=== PATIENT | male | born 1945 | race Caucasian/White ===

== ENCOUNTER 2016-05-11 16:33 | Emergency (ER) | payer MEDICARE ==
--- NOTE | 2016-05-11 17:21 | ED ---
Upper Extremity Pain - HPI Summary HPI Summary: Lt hand dominant pt here w/ Rt thumb lac while working on table saw today. Has a lot of pain but denies numbness, weakness. Imms are UTD. Takes an 81mg ASA daily -otherwise, no anticoagulants. Recently had a fempop bypass for which he' s been taking keflex and colchicine for suspected gout - better since taking colchicine. Denies fever, chills, N/V/D. Has been eating and drinking well. 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 - History of Current Complaint Chief Complaint: EDLacSutureRecheck Stated Complaint: THUMB LAC FROM TABLE SAW Time Seen by Provider: 05/11/16 16:49 Hx Obtained From: Patient, Family/Termite Treater - - Allergies/Home Medications Allergies/Adverse Reactions: Allergies Allergy/AdvReac Type Severity Reaction Status Date / Time Atorvastatin [From Lipitor] Allergy Muscle Ache Verified 12/22/14 09:03 PMH/Surg Hx/FS Hx/Imm Hx Previously Healthy: No - recovering from fempop bypass w/ acute gout reaction Endocrine/Hematology History: Denies: Hx Anticoagulant Therapy Cardiovascular History: Reports: Hx Coronary Artery Disease - BLOCKED ARTERY; UNABLE TO DO ANGIOPLASTY 1979, Hx Hypertension, Hx Peripheral Vascular Disease - Fempop bypass 2016 Respiratory History: Denies: Hx Asthma Musculoskeletal History: Reports: Hx Arthritis - ALL OVER, Other Musculoskeletal History - SPINAL SURGERY Sensory History: Reports: Hx Cataracts - BILAT, Hx Contacts or Glasses - GLASSES Denies: Hx Hearing Aid Opthamlomology History: Reports: Hx Cataracts - BILAT, Hx Contacts or Glasses - GLASSES Psychiatric History: Denies: Hx Substance Abuse - Surgical History Surgery Procedure, Year, and Place: SINUS SURGERY 50 YRS AGO. R KNEE SURGERY 30 YRS AGO. LUMBAR SPINAL STENOSIS SURGERY 2009 [facility] [place]. R HAND CYST EXC 2010 [facility] [place]. CIRCUMCISION 1999 Hx Anesthesia Reactions: No - Immunization History Date of Tetanus Vaccine: per -"a year or two ago maybe" Infectious Disease History: No Infectious Disease History: Denies: Hx of Known/Suspected MRSA, Traveled Outside the [place] in Last 30 Days - Family History Known Family History: Positive: Unknown - Social History Lives: With Family - Alcohol Use: Weekly Alcohol Amount: 1 BEER 3-4/WEEK Hx Substance Use: No Substance Use Type: Reports: None Smoking Status (MU): Current Every Day Smoker Type: Cigarettes Amount Used/How Often: 1/2 PPD Length of Time of Smoking/Using Tobacco: 50 YRS Review of Systems Negative: Chest Pain Negative: Shortness Of Breath Gastrointestinal: Negative Musculoskeletal: Negative Skin: Other - see HPI Neurological: Negative Positive: Anxious All Other Systems Reviewed And Are Negative: Yes Physical Exam Triage Information Reviewed: Yes Vital Signs On Initial Exam: Initial Vitals Temp Pulse Resp BP Pulse Ox 97.0 F 62 20 164/110 95 05/11/16 16:34 05/11/16 16:34 05/11/16 16:34 05/11/16 16:34 05/11/16 16:34 Vital Signs Reviewed: Yes Appearance: Positive: Well-Appearing, Well-Nourished, Pain Distress Skin: Positive: Warm - jagged laceration over Rt palmar surface of thumb w/ oozing bleeding when pressure is not held in place Head/Face: Positive: Normal Head/Face Inspection Respiratory/Lung Sounds: Positive: Breath Sounds Present Cardiovascular: Positive: Pulses are Symmetrical in both Upper and Lower Extremities - radial pulse + 2, cap refill < 2 secs Musculoskeletal: Positive: Normal, Strength/ROM Intact Neurological: Positive: Normal, Sensory/Motor Intact, Alert, Oriented to Person Place, Time Psychiatric: Positive: Anxious - Kourtney Coma Scale Coma Scale Total: 15 Procedures - Laceration/Wound Repair 1 Location: upper extremity - Rt thumb Description: Irregular - jagged in places, skin avulsed in others Anesthesia: Digital - 3cc, .5%, Marcaine Length, Depth and Shape: 2.5cm x 4mm Betadine Prep?: Yes Irrigated w/ Saline (ccs): 500 Laceration/Wound Explored: clean Suture Type: Nylon - 5-0 Number of Sutures: 9 Layer Closure?: No Sterile Dressing Applied?: Yes - triple anbx + xerform + gauze pressure dressing Diagnostics - Vital Signs Vital Signs Temp Pulse Resp BP Pulse Ox 05/11/16 17:12 99.5 F 05/11/16 17:00 90 169/94 97 05/11/16 16:56 108 151/94 96 05/11/16 16:41 95 95 05/11/16 16:34 97.0 F 62 20 164/110 95 - Laboratory Lab Statement: Any lab studies that have been ordered have been reviewed, and results considered in the medical decision making process. Re-Evaluation - Re-Evaluation First Eval Change: Improved - digital block but pain was returning before d/c - ibuprofen and norco ordered Course/Dx - Diagnoses Provider Diagnoses: Laceration of thumb, right, complicated, Open fracture of distal phalanx of digit of right hand - Physician Notifications Discussed Care Of Patient With: 17:31 - spoke w/ Dr. Limon - wash and suture - call Saturday for appt early next week. Will continue keflex anbx. Called gabriela to notify wound was tacked more than completely closed d/t lack of skin integrity - will have pt perform soapy soak 1 x day w/ dressing change. Discharge - Discharge Plan Condition: Stable Disposition: HOME Prescriptions: Cephalexin CAP* [Keflex CAP*] 500 mg PO QID #20 cap HYDROcodone/ACETAMIN 5-325 MG* [Chassell 5-325 TAB*] 1 tab PO Q6H PRN #15 tab MDD 4 PRN Reason: Pain Patient Education Materials: Finger Laceration (ED), Finger Fracture (ED), Care For Your Stitches (ED) Referrals: Tonio Limon MD [Medical Doctor] - Additional Instructions: Keep dressing clean, dry and intact - you may soak in soapy water once a day - rinse well and pat dry before redressing with triple antibiotic and clean gauze. Redress with bulky dressing to protect and splint finger as tip is fractured. Follow-up with Dr. Schilling this week. Call Saturday to schedule an appointment. Your sutures will need to be removed in 10- 14 days or when decided by Dr. Limon Continue keflex to prevent infection and ibuprofen for pain. You may take norco for breakthrough pain as needed. *If you experience excessive bleeding despite pressure and/or fever, chills, streaking, purulent drainage, return to ED
--- NOTE | 2016-05-11 17:37 | RAD ---
INDICATION: Laceration with table saw. Right thumb injury. COMPARISON: None TECHNIQUE: AP, lateral, and oblique views were obtained. FINDINGS: There is a traumatic amputation of the distal phalanx comminution and with associated soft tissue injury. There is no radiopaque foreign body. IMPRESSION: TRAUMATIC AMPUTATION AT THE LEVEL OF THE DISTAL PHALANX. SOFT TISSUE INJURY.
[2016-05-11] MEDS ORDERED: Ibuprofen TAB* 600 MG PO ONE (18:18)
[2016-05-11] MEDS ORDERED: HYDROcodone/ACETAMIN 5-325 MG* 1 TAB PO ONE ×2 (18:18→18:52)
[2016-05-11 18:25] VITALS: BP 163/88
== END 2016-05-11 19:18 | disposition home or self-care (01) ==
LOC: ED 16:33
DX: S62.521B Displaced fracture of distal phalanx of right thumb, initial encounter for open fracture (principal); W31.2XXA Contact with powered woodworking and forming machines, initial encounter; Y92.9 Unspecified place or not applicable; Z79.82 Long term (current) use of aspirin; I25.10 Atherosclerotic heart disease of native coronary artery without angina pectoris; I10 Essential (primary) hypertension; F17.210 Nicotine dependence, cigarettes, uncomplicated; I73.9 Peripheral vascular disease, unspecified; M19.90 Unspecified osteoarthritis, unspecified site
CPT/HCPCS: 12001; 99283; A9270-GY

== ENCOUNTER → 2016-10-20 04:32 | Emergency (ER) | payer MEDICARE ==
[~2016-10-20 04:32] MED LIST: Albuterol/Ipratropium NEB.SOL* Albuterol 2.5 MG/Ipratropium 0.5 MG 3 ML INH ONE; Iohexol 300* (CONTRAST) 10 ML SDV IV ONE; Morphine INJ* 4 MG/ML 1 ML SYRINGE IV ONE; Morphine INJ* 4 MG/ML 1 ML SYRINGE ONE; NS 0.9% 1000 ML* 1,000 ML IV ONE; Ondansetron INJ* 2 MG/ML VIAL IV ONE
[2016-10-20 05:13] LABS: Hematocrit 43 % (42-52); Hemoglobin 14.4 g/dl (14.0-18.0); Mean Corpuscular HGB Conc 33 g/dl (31-36); Mean Corpuscular Hemoglobin 32 pg (27-31); Mean Corpuscular Volume 95 fL (80-94); Mean Platelet Volume 10 um3 (7.4-10.4); Red Blood Count 4.55 10^6/ul (4.0-5.4); Red Cell Distribution Width 14 % (10.5-15); White Blood Count 11.3 10^3/ul (3.5-10.8)
[2016-10-20 05:25] LABS: BUN/Creatinine Ratio 25.6 (8-20); Calcium 8.6 mg/dL (8.6-10.3); EGFR African American 106.4 (>60); EGFR Non-African American 82.7 (>60); Globulin 2.7 g/dL (2-4); Total Bilirubin 0.5 mg/dL (0.2-1.0); Total Protein 6.7 g/dL (6.4-8.9)
[2016-10-20 05:27] LABS: Troponin I 0.01 ng/mL (<0.04)
[2016-10-20 05:34] LABS: Potassium 4.1 mmol/L (3.5-5.0)
--- NOTE | 2016-10-20 08:05 | RAD ---
HISTORY: Shortness of breath COMPARISONS: December 28, 2013 VIEWS:1: Single frontal portable view of the chest at 4:18 AM FINDINGS: LINES AND TUBES: None. CARDIOMEDIASTINAL SILHOUETTE: The cardiomediastinal silhouette is normal for portable technique. PLEURA: The costophrenic angles are sharp. No pleural abnormalities are noted. LUNG PARENCHYMA: There is patchy alveolar opacification of the left lung base ABDOMEN: The upper abdomen is clear. There is no subphrenic gas. BONES AND SOFT TISSUES: There is subcutaneous emphysema along the left chest wall and neck IMPRESSION: EXTENSIVE SUBCUTANEOUS EMPHYSEMA OF THE LEFT CHEST WALL AND NECK. LEFT BASILAR ATELECTASIS VERSUS CONSOLIDATION.
--- NOTE | 2016-10-20 08:21 | RAD ---
HISTORY: Trauma to the chest and abdomen COMPARISONS: None relevant available at the time of dictation TECHNIQUE: Multiple contiguous axial CT scans were obtained of the chest, abdomen, and pelvis after the administration of intravenous contrast. Coronal and sagittal multiplanar reformations are submitted for review.. Oral contrast was not administered. Delayed images were obtained through the abdomen and pelvis. FINDINGS: CHEST NECK AND THYROID: The lower neck and thyroid are unremarkable. CHEST WALL: There is no lower cervical, axillary, or supraclavicular lymphadenopathy by size criteria. HEART AND PERICARDIUM: The heart is unremarkable. AORTA AND PULMONARY VASCULATURE: The aorta and pulmonary vasculature are normal. MEDIASTINUM: There is pneumomediastinum SANJEEV: There is no hilar lymphadenopathy by size criteria. AIRWAY AND ESOPHAGUS: The airway is unremarkable, without endobronchial filling defect. The esophagus is grossly normal. LUNG PARENCHYMA: There is subsegmental consolidation of the left lung base.. There is minimal groundglass opacification of the right upper lobe PLEURA: There is a small to moderate left pneumothorax. There is a small left high attenuation pleural effusion. BONES AND SOFT TISSUES: There are displaced fractures of the left eighth and ninth ribs. There is extensive subcutaneous emphysema. ABDOMEN/PELVIS: LIVER: The liver is normal in shape, size, contour, and attenuation. BILE DUCTS: There is no intrahepatic or extrahepatic biliary dilatation. GALLBLADDER: The gallbladder is normal, without pericholecystic inflammatory change. PANCREAS: The pancreas is normal, without mass or ductal dilatation. SPLEEN: Normal in size and appearance. UPPER GI TRACT: Evaluation of the gastrointestinal tract is limited by incomplete gastric distention. The upper GI tract is unremarkable. SMALL BOWEL \T\ MESENTERY: The small bowel is normal in contour, course, and caliber. There is no obstruction or dilatation. COLON: There are multiple diverticula of the distal colon. There is no pericolonic inflammatory change. ADRENALS: Normal bilaterally. KIDNEYS: The kidneys are normal in shape, size, contour, and axis. There is no hydronephrosis or nephrolithiasis. BLADDER: The bladder is smooth in contour. PELVIC ORGANS: The prostate gland is normal. The seminal vesicles are symmetric. AORTA: There is calcific atherosclerotic disease of the abdominal aorta and its branches, without aneurysmal dilatation IVC: Unremarkable LYMPH NODES: There is no lymphadenopathy by size criteria. ABDOMINAL WALL: There is no evidence for abdominal wall hernia. BONES: Degenerative changes are noted of the spine OTHER: There is no active arterial extravasation IMPRESSION: 1. SMALL TO MODERATE LEFT PNEUMOTHORAX WITH SMALL LEFT EFFUSION, LIKELY HEMORRHAGIC. 2. DISPLACED FRACTURES OF LEFT EIGHTH AND NINTH RIBS. 3. EXTENSIVE SUBCUTANEOUS EMPHYSEMA. 4. NO PLACENTA PREVIA 5. THERE IS BASILAR CONSOLIDATION. THERE IS GROUND LESS OPACIFICATION OF THE RIGHT UPPER LUNG. THE DIFFERENTIAL INCLUDES PULMONARY CONTUSION. 6. DIVERTICULOSIS. 7. NO ACUTE PATHOLOGY OF THE ABDOMEN. NO ACTIVE ARTERIAL EXTRAVASATION.
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
[2016-10-20 09:41] VITALS: BP 143/75
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
== END | disposition short-term general hospital (02) ==
LOC: ED 04:32
DX: T79.7XXA Traumatic subcutaneous emphysema, initial encounter (principal); S29.9XXA Unspecified injury of thorax, initial encounter; J93.9 Pneumothorax, unspecified; J94.2 Hemothorax; R07.9 Chest pain, unspecified; W30.89XA Contact with other specified agricultural machinery, initial encounter
CPT/HCPCS: 36415; 71010; 71260; 74177; 80053; 83605; 83690; 83880; 84484; 85025; 85610; 85730; 86850; 86900; 86901; 93005; 94640; 96374; 96375; 99285; A9270-GY; J2270; J2405; Q9967

== ENCOUNTER 2017-02-12 06:35 | Inpatient (IN) | payer MEDICARE ==
--- NOTE | 2017-02-06 12:44 | HP ---
PREOPERATIVE HISTORY AND PHYSICAL: DATE OF ADMISSION: 02/12/17 PROVIDER: Amber Britton MD * (DICTATED BY MIRANDA PITTS) CHIEF COMPLAINT: Bilateral knee pain. HISTORY OF PRESENT ILLNESS: Mr. Pichardo is a 71-year-old gentleman who has had ongoing pain in bilateral knees. He rates this as anywhere from 2 to 8 out of 10, aching pain along his medial joint line. It is increased with weightbearing and prolonged ambulation. He has failed conservative treatment and is elected to proceed with a left total knee arthroplasty. PAST MEDICAL HISTORY: GERD, osteoarthritis, spinal stenosis, anxiety, coronary artery disease with angina, peripheral vascular disease, tobacco use, and gout. PAST SURGICAL HISTORY: Right hand cyst excision in 2010, sinus surgery in 194 , arthroscopy of the right knee, circumcision in 1999, right ankle fracture fixation, cardiac catheterization in 1979, lower back surgery in 2009. He reports nausea with anesthesia. CURRENT MEDICATIONS: 1. Magnesium supplement half tab p.o. once daily. 2. Wellbutrin SR 100 mg b.i.d. 3. Glucosamine chondroitin 1500 complex 1 p.o. b.i.d. 4. Cinnamon 500 mg 1 p.o. b.i.d. 5. Potassium chloride 10 mEq half tab p.o. daily. 6. Aspirin 81 mg daily. 7. Amlodipine 5 mg daily. 8. Colchicine as needed. ALLERGIES: LIPITOR, ALLOPURINOL, TRANDOLAPRIL. SOCIAL HISTORY: He lives with his . 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 He currently smokes a half a pack of cigarettes per day and has for 50 years. He rarely consumes alcohol. He exercises regularly. REVIEW OF SYSTEMS: Constitutional: Negative for recent hospitalizations, fevers, chills, night sweats or unexplained weight loss. Head: Negative for headaches, lightheadedness, or balance problems. Cardiovascular: Positive for chest pain with exertion due to his angina. History of heart attack, heart palpitations. Positive for high blood pressure. Negative for embolism or deep vein thrombosis. Respiratory: Negative for chronic cough. Negative for shortness of breath with exertion, asthma or COPD. Gastrointestinal: Negative for heartburn, nausea, vomiting, diarrhea, constipation or GERD. Genitourinary : Negative for nighttime urination, frequency of urination, urinary tract infections or kidney problems. Musculoskeletal: Negative for chronic back pain or recent fractures. Skin: Negative for rashes, lesions, lumps or sores. Neurologic: Negative for seizure, stroke, epilepsy, depression or anxiety. Endocrine: Negative for diabetes or thyroid problems. Hematology: Negative for easy bleeding, bruising or anemia. PHYSICAL EXAMINATION GENERAL: He is a well-developed, well-nourished pleasant male, in no acute distress at rest. He is alert and oriented x2 with appropriate mood and affect. VITAL SIGNS: The patient is 5 feet 8 inches, 186 pounds, blood pressure 166/86 , pulse of 64. HEENT: Normocephalic, atraumatic. Hearing and vision are grossly intact. NECK: His trachea is midline. RESPIRATORY: Lungs clear to auscultation bilaterally. No wheezes, rales or rhonchi. CARDIOVASCULAR: Regular rate and rhythm. No murmurs, rubs or gallops. Normal S1, S2. ABDOMEN: Soft, nondistended, nontender. Normal bowel sounds. EXTREMITIES: Exam of the left lower extremity, skin is intact without abrasions or open wounds. There is a mild joint effusion. There is no ecchymosis or gross deformity. He has no varus or valgus instability. He has 15 to 90 degrees of flexion. He has 5/5 ankle dorsiflexion and plantar flexion strength. His sensation to light touch is intact to all nerve distributions. He has 2+ dorsalis pedis pulse. IMPRESSION: Left knee osteoarthritis. PLAN: The patient is to undergo left total knee arthroplasty by Dr. Britton on . The risks, benefits and post-operative course were discussed with the patient at length and he would like to proceed. All of his questions and his 's questions were answered to their full satisfaction. The patient is not interested in visiting nurse service and would prefer not to be on Coumadin. This was discussed at his preoperative appointment, and aspirin will be used for DVT prophylaxis. A prescription for Percocet was also sent to his pharmacy for postoperative pain. MIRANDA PITTS [id number]/[facility] #: [id number] JARRELL
[~2017-02-12 06:35] MED LIST changes: +Acetaminophen TAB* 325 MG PO ONE; -Albuterol/Ipratropium NEB.SOL* Albuterol 2.5 MG/Ipratropium 0.5 MG 3 ML INH ONE; +Buffered Lidocaine 0.9% SYRIN* 5 ML/SYR SYRINGE INTRADERM ONE; +Dexamethasone IV* 4 MG/ML 1 ML (4 MG) IV SLOW PU ONE; -Iohexol 300* (CONTRAST) 10 ML SDV IV ONE; -Morphine INJ* 4 MG/ML 1 ML SYRINGE IV ONE; -Morphine INJ* 4 MG/ML 1 ML SYRINGE ONE; -NS 0.9% 1000 ML* 1,000 ML IV ONE; -Ondansetron INJ* 2 MG/ML VIAL IV ONE; +Sodium Citrate/Citric Acid* 15 ML UDC PO ONE
[2017-02-12] MEDS ORDERED: ceFAZolin 2 GM PREMIX (*) 2 GM/50 ML BAG IVPB ONE (07:10)
[2017-02-12] MEDS ORDERED: Sodium Citrate/Citric Acid* 15 ML UDC ONE (07:10)
[2017-02-12] MEDS ORDERED: Acetaminophen TAB* 325 MG ONE (07:10)
[2017-02-12] MEDS ORDERED: Dexamethasone IV* 4 MG/ML 1 ML (4 MG) ONE (07:10)
[2017-02-12] MEDS ORDERED: Buffered Lidocaine 0.9% SYRIN* 5 ML/SYR SYRINGE ONE (07:10)
[2017-02-12] MEDS ORDERED: Midazolam* 1 MG/ML 2 ML VIAL (2 MG) ONE ×3 (07:32→09:08)
[2017-02-12] MEDS ORDERED: fentaNYL* 50 MCG/ML 2 ML VIAL (100 MCG VIAL) ONE (07:33)
[2017-02-12] MEDS ORDERED: Lidocaine 2% PF * 5 ML VIAL ONE (07:33)
[2017-02-12] MEDS ORDERED: Propofol* 500 MG/50 ML BTL ONE (07:33)
[2017-02-12] MEDS ORDERED: Bupivacaine 0.5% SDV PF* 30 ML VIAL ONE (07:33)
[2017-02-12] MEDS ORDERED: oxyCODONE/Acetamin 5/325 MG* TAB PO PRN ×2 (08:33→10:57)
[2017-02-12] MEDS ORDERED: fentaNYL* 50 MCG/ML 2 ML VIAL (100 MCG VIAL) IV PRN (08:33)
[2017-02-12] MEDS ORDERED: Ondansetron INJ* 2 MG/ML VIAL IV PRN ×2 (08:33→10:57)
[2017-02-12] MEDS ORDERED: Levalbuterol 0.63MG/3ML NEB* UNIT OF USE INH PRN (08:33)
[2017-02-12] MEDS ORDERED: DiMENhydriNATE IV* 50 MG/ML VIAL IV PUSH PRN (08:33)
[2017-02-12] MEDS ORDERED: HYDROcodone/ACETAMIN 5-325 MG* 1 TAB PO PRN (08:33)
[2017-02-12] MEDS ORDERED: oxyCODONE TAB* 5 MG TAB PO PRN (08:33)
[2017-02-12] MEDS ORDERED: HYDROmorphone INJ* 1 MG/ML CARPUJECT SYRINGE IV PRN (08:33)
[2017-02-12] MEDS ORDERED: EPHEDrine (Pressors)* 50 MG/ML VIAL ONE (08:42)
[2017-02-12] MEDS ORDERED: Propofol* 10 MG/ML 20 ML BTL IV PUSH ONE (09:06)
[2017-02-12] MEDS ORDERED: Ondansetron INJ* 2 MG/ML VIAL ONE (10:03)
[2017-02-12] MEDS ORDERED: Ketorolac INJ* 30 MG/ML 1 ML VIAL ONE (10:03)
[2017-02-12] MEDS ORDERED: Bisacodyl SUPP* 10 MG SUPP PR PRN (10:57)
[2017-02-12] MEDS ORDERED: Ondansetron TAB* 4 MG PO PRN (10:57)
[2017-02-12] MEDS ORDERED: Magnesium Hydroxide LIQ* 30 ML UDC PO PRN (10:57)
[2017-02-12] MEDS ORDERED: diPHENhydraMINE IV* 50 MG/ML 1 ml VIAL (BENADRYL) IV PRN (10:57)
[2017-02-12] MEDS ORDERED: Morphine INJ* 2 MG/ML 1 ML SYRINGE (TWO MG - NEW SYRINGE VERSION) IV PRN (10:57)
[2017-02-12] MEDS ORDERED: Polyethylene Glycol 3350* 17 GM PACKET PO PRN (10:57)
[2017-02-12] MEDS ORDERED: Acetaminophen TAB* 325 MG PO PRN (10:57)
[2017-02-12] MEDS ORDERED: ceFAZolin 1 GM in Dextrose (*) 1 GM/50 ML Duplex BAG IVPB SCH (11:00)
[2017-02-12] MEDS ORDERED: Cyclobenzaprine TAB* 10 MG PO PRN (11:02)
[2017-02-12] MEDS ORDERED: oxyCODONE/Acetamin 5/325 MG* TAB ONE (11:28)
--- NOTE | 2017-02-12 11:37 | RAD ---
HISTORY: Status post left knee arthroplasty COMPARISONS: December 24, 2016 VIEWS: 2, Frontal and lateral views of the left knee FINDINGS: BONE DENSITY: Normal. BONES: The patient is status post left knee arthroplasty. There is no hardware failure or osteolysis. JOINTS: The patient is status post left knee arthroplasty ALIGNMENT: There is no dislocation. SOFT TISSUES: There is postsurgical change to the soft tissue. A vascular stent is noted along the distal femur. OTHER FINDINGS: None. IMPRESSION: STATUS POST LEFT KNEE ARTHROPLASTY
[2017-02-12] MEDS: oxyCODONE TAB* 5 MG TAB PO PRN ×2 (14:09→20:58)
[2017-02-12] MEDS: ceFAZolin 1 GM VIAL(*) 1 GM in D5W 50 ML BAG* 50 ML IVPB SCH ×2 (16:00→23:38)
[2017-02-12] MEDS: Nicotine PATCH 21 MG/24 HR* PATCH TRANSDERM SCH (16:53)
[2017-02-12] MEDS ORDERED: Warfarin TAB(*) 6 MG PO SCH (17:00)
[2017-02-12] MEDS: oxyCODONE/Acetamin 5/325 MG* TAB PO PRN ×2 (18:34→22:30)
--- NOTE | 2017-02-12 20:41 | CONS ---
HOSPITAL MEDICINE CONSULTATION REPORT: DATE OF CONSULT: 02/12/17 PROVIDER: Alyssa Wilder NP ATTENDING PHYSICIAN: Dr. Britton. CONSULTING PHYSICIAN: Benjamin Burks MD (dictation provided by Alyssa Wilder NP). REASON FOR CONSULT: Co-medical management of the patient's chronic medical conditions. HISTORY OF PRESENT ILLNESS: Mr. Pichardo is a 71-year-old male that presents with a past medical history of GERD, osteoarthritis, spinal stenosis, anxiety, coronary artery disease with angina, peripheral vascular disease with bypass and stenting to his legs, gout, and hypertension. He presented to the hospital today for a planned left total knee arthroplasty with Dr. Britton. In brief, the patient had bilateral knee aching pain for a long time along the medial joint line, increasing with weight-bearing and prolonged ambulation. He failed conservative treatment and was admitted today for an scheduled elective left total knee replacement. During the postoperative period, he is doing well. We were called for consult due to his history of coronary artery disease, peripheral vascular disease, and hypertension. The patient states that he is doing well. He has no pain currently. PAST MEDICAL HISTORY: 1. GERD. 2. Osteoarthritis. 3. Spinal stenosis. 4. Anxiety. 5. Coronary artery disease with angina. 6. Peripheral vascular disease. 7. Gout. 8. Hypertension. PAST SURGICAL HISTORY: 1. Right hand cyst incision in 2010. 2. Sinus surgery in 194. 3. Arthroscopy of the right knee. 4. Circumcision in 1999. 5. Right ankle fracture. 6. Cardiac catheterization 1979. 7. Low back surgery in 2009. 8. Bypass in the right leg. 9. Stenting to the left leg in 2015. HOME MEDICATIONS: 1. Magnesium half tablet p.o. daily. 2. Wellbutrin 100 mg b.i.d. 3. Glucosamine 1500 mg p.o. b.i.d. 4. Cinnamon 500 mg b.i.d. 5. Potassium 10 mEq half p.o. daily. 6. Aspirin 81 mg daily. 7. Amlodipine 5 mg daily. 8. Colchicine 0.6 mg b.i.d. ALLERGIES: LIPITOR, ALLOPURINOL, PLETAL, AND TRANDOLAPRIL. FAMILY HISTORY: Father had coronary artery disease. SOCIAL HISTORY: The patient is a current smoker, smokes half a pack to a pack per day. He does drink alcohol occasionally. Denies recreational drug use. He lives at home with his , Carmen Pichardo. Surrogate decision maker in the event he cannot make his decisions for himself is his , Carmen Pichardo, phone number . REVIEW OF SYSTEMS: Constitutional: No fever, no chills. No unintended weight loss. Cardiac: Denies chest pain or edema. Respiratory: Denies shortness of breath, cough, or congestion. GI: Denies nausea, vomiting or diarrhea. Denies abdominal pain. : No gross hematuria or dysuria. Neuro: No focal weakness or sensory loss. Eyes: No visual complaints. ENT: No dysphagia, rhinorrhea. Musculoskeletal: Complains of bilateral knee pain that is chronic. Skin: No rashes or lesions. Psych: No depression or anxiety. PHYSICAL EXAM: Vital Signs: Blood pressure 124/68, heart rate is sinus rhythm in the 70s, respirations are 20, temperature is 98.1, O2 sat is 96% on 2 L. General: Mr. Pichardo is sitting in the bed. He is in no acute distress. Neuro: He is alert and oriented x3. He is able to move all extremities equally. Extraocular eye movements are intact. Heart: S1, S2. No murmurs, rubs, gallops. He is in regular rate and rhythm. Lungs: Clear to auscultation bilaterally with no accessory muscle use. Abdomen: Soft, nontender. Bowel sounds positive x4. Extremities: No cyanosis or edema. Skin: Intact. He does have a dressing intact to his left knee. DIAGNOSTIC STUDIES/LAB DATA: Preoperatively, his lab work is from 01/30/17. WBCs are 7.5, RBC 4.88, hemoglobin is 15.8, hematocrit 47, platelet count was 204. INR was 0.90 on 01/30/17. Also from 01/30/17, sodium was 139, potassium 3.9, chloride 105, carbon dioxide 28, BUN 14, creatinine was 0.85, glucose was 82, calcium was 9.0. AST is 23, ALT is 19. Urine from 01/30/17, specific gravity 1.019, pH was 5, negative for blood, nitrites, ketones, protein, and bilirubin. Left knee x-ray from 02/12/17, radiologist reading status post left knee arthroplasty is impression. Echo from 02/06/17 showed mild mitral regurg, mild tricuspid regurgitation, and an EF of 55% to 60%, EKG from 01/29/17, sinus rhythm 84, first- degree AV block. IMPRESSION AND PLAN: Mr. Pichardo is 71-year-old male that was with past medical history significant for coronary artery disease, hypertension, gout, peripheral vascular disease, anxiety and osteoarthritis was admitted for an elective left total knee arthroscopy in the immediate postoperative period. He is doing well. He has no complaints at this time. Our recommendations are as follows: 1. Status post left total knee arthroscopy, management per Orthopedics. The patient will be given pain management. His H and H will be trended. He will have the urinary catheter removed tomorrow morning. The patient will have physical therapy/occupational therapy with weightbearing as tolerated. 2. Hypertension: We will continue him on his amlodipine 5 mg p.o. daily and monitor his blood pressure throughout his stay. 3. Gout: We will continue him on his colchicine 0.6 mg b.i.d. 4. Anxiety: We will continue on Wellbutrin 100 mg p.o. b.i.d. 5. Fluid, electrolytes, and nutrition: The patient will be placed on a regular diet. 6. DVT prophylaxis: The patient will be on warfarin per Orthopedics and will also receive Lovenox. 7. Code status is full code. 8. Disposition: Disposition is per Orthopedic Surgery. TIME SPENT: Time spent on this consultation was 60 minutes, 30 minutes were spent with the patient discussing medications and past medical history leading to the events of his arrival today. The case was reviewed with my attending Dr. Benjamin Burks, who agrees with my plan of care. ALYSSA WILDER, SIDE SHOW ENTERTAINER [id number]/[facility] #: [id number] JARRELL
[2017-02-12] MEDS: Colchicine* 0.6 MG TAB PO SCH (20:55)
[2017-02-12] MEDS: buPROPion SR TAB.SR* 150 MG PO SCH (20:55)
[2017-02-12] MEDS: Docusate CAP* 100 MG PO SCH (20:55)
[2017-02-12] MEDS ORDERED: Nicotine Patch Removal NOTE FOLLOW UP SCH (21:00)
[2017-02-13] MEDS: oxyCODONE/Acetamin 5/325 MG* TAB PO PRN ×3 (03:48→12:23)
--- NOTE | 2017-02-13 04:04 | OP ---
DATE OF OPERATION: 02/12/17 - ROOM #347 DATE OF : 41 ATTENDING SURGEON: Amber Britton MD. CONSUMER LENDER: MIRANDA Scott. Ms. Vega did help throughout the procedure with preparation of the leg, wound retraction, manipulation of the knee, and wound closure. ANESTHESIOLOGIST: Dr. Iverson ANESTHESIA: Spinal. PRE-OP DIAGNOSIS: Severe endstage degenerative osteoarthritis of the left knee joint with varus deformity. POST-OP DIAGNOSIS: Severe endstage degenerative osteoarthritis of the left knee joint with varus deformity. OPERATIVE PROCEDURE: Left total knee arthroplasty. TOURNIQUET TIME: 58 minutes. COMPLICATIONS: None. ESTIMATED BLOOD LOSS: 250 cc. HARDWARE USED: A cemented [employer] total knee arthroplasty hardware. Two packages of Simplex bone cement. For the femur, a left size 7 posterior stabilized Legion femoral component. For the tibia size 6 left tibial baseplate Nini II. For the insert, an 11 mm posterior stabilized articular insert, size 5-6, and for the patella a 35-mm 3-peg all poly patella. BRIEF HISTORY/INDICATIONS: Mr. Pichardo is a 71-year-old gentleman with years of increasingly severe left knee pain. Radiographs showed [id number] arthritis. He developed varus deformity. He failed conservative treatment with anti- inflammatories, pain medication, and intraarticular injections and physical therapy. Due to continued pain and decreased quality of life, he elected to undergo left total knee arthroplasty. Informed consent was obtained from the patient. He understood the risks of surgery, included but were not limited to bleeding, infection, damage to nearby structures, continued pain, need for further surgery, intraoperative fracture, nerve palsy, hardware failure or loosening, knee stiffness, loss of motion, stroke, heart attack, blood clot, and . He wished to proceed. INTRAOPERATIVE FINDINGS: Intraoperatively, the patient was noted to have severe flexion contracture of 20 degrees. He had 12 degree valgus deformity. He had tricompartmental extensive osteophyte formation and complete loss of cartilage. DESCRIPTION OF PROCEDURE: Mr. Pichardo was identified in the preanesthesia unit. His left lower extremity was marked as the correct operative side. Informed consent was signed and placed in the chart. The patient was taken to the operating room and placed under anesthesia. A Narvaez catheter was placed. Thigh head tourniquet was placed on the left thigh. Left lower extremity was prepped and draped in the usual sterile fashion. Preop time-out was made to correctly identify the patient's side and site. Appropriate perioperative antibiotics were given within 1 hour of incision. Tourniquet was inflated and total tourniquet time for this procedure was 58 minutes. A 14-cm midline incision was made with a 10-blade carried down to the extensor mechanism. New 10-blade was used to make a standard medial parapatellar arthrotomy. Patella was subluxed laterally. Electrocautery was used to subperiosteally elevate soft tissue off the supero-medial tibia to the mid sagittal plain. Rongeur was used to remove the osteophytes along the proximal medial tibial plateau. The knee was flexed up. The anterior horn of the lateral meniscus and ACL were sharply released. A drill was used to enter the distal femur. Intramedullary distal femoral cutting guide was pinned on the distal femur. 9 mm of distal femoral bone was carefully removed using an oscillating saw. External rotation guide was pinned on the distal femur and the distal femur was sized to a size 7. Multi-cutting jig size 7 was pinned on the distal femur. The oscillating saw was used to make the appropriate four chamfer cuts. The PCL was completely released using electrocautery. Tibia was subluxed anteriorly. Extramedullary tibial cutting guide was pinned on the proximal tibia. The oscillating saw was used to make a proximal tibial cut perpendicular to the mechanical axis of the tibia. The bone was carefully removed. The knee was brought out into full extension and then spacer block had good fit. Medial and lateral ligaments were well balanced. Flexion and extension gaps were well balanced. The knee was flexed up. Lamina psychiatry instructor was placed both medially and laterally. Any remaining meniscus was carefully removed using electrocautery. Posterior osteophytes were removed using the curved osteotome. Tibial tray and drop marija were placed to once again confirm satisfactory tibial cut. This was confirmed. A trial left size 7 femoral component was impacted on to the distal femur and had excellent fit. The box for the posterior stabilized implant was prepared using a reamer and box cut osteotome. Size 6 tibial tray trial with an 11-mm insert trial was placed and the knee taken through a range of motion. The knee had full extension to 130 degrees of flexion with good patellofemoral tracking. The patella was everted. A 9 mm of patellar bone and cartilage was carefully removed using an oscillating saw. The patella was sized to a size 35. The three peg holes were drilled through the size 35 guide. A 35 trial patella was placed and the knee was taken through range of motion. There was satisfactory patellofemoral tracking. All trials were carefully removed. The tibia was subluxed anteriorly and sized to a size 6. Proximal tibia was prepared using a size 6 keel punch. All bony cut surfaces were copiously irrigated with sterile saline and dried. The final implants were cemented into place starting with the tibia, followed by the femur and last patella. An 11 mm insert trial was placed while the knee was brought out to full extension. The cement was allowed to fully cure. Tourniquet was turned down at 58 minutes. The knee was copiously irrigated with sterile saline. Electrocautery was used to obtain meticulous hemostasis. Once the cement had fully cured, the insert trial was removed. Excess cement was carefully removed from around the capsule and hardware. Final insert chosen was an 11 mm posterior stabilized articular insert size 5/6. This was locked into position on the tibial tray. Stability of the insert was checked and rechecked and noted to be stable. The extensor mechanism was closed using interrupted #1 Vicryls. The rest of the incision was closed in a layered fashion using 0-2 Vicryls. The skin was closed using running 3-0 nylon suture. Sterile Xeroform, 4x4s, and Webril were used to cover the incision. Carl wrap and cold pack were placed over this. The patient's anesthesia was reversed without difficulty. He was taken to the PACU in stable condition. Intended weight-bearing will be weightbearing as tolerated. Intended DVT prophylaxis will be Coumadin with a Lovenox bridge. [id number]/[facility] #: [id number] JARRELL
[2017-02-13 05:46] LABS: Hematocrit 38 % (42-52); Hemoglobin 12.6 g/dl (14.0-18.0)
[2017-02-13 06:14] LABS: BUN/Creatinine Ratio 14.9 (8-20); Calcium 8.2 mg/dL (8.6-10.3); EGFR African American 110.6 (>60); Potassium 3.5 mmol/L (3.5-5.0)
[2017-02-13] MEDS: Nicotine PATCH 21 MG/24 HR* PATCH TRANSDERM SCH (07:58)
--- NOTE | 2017-02-13 08:38 | PN ---
Progress Note - Progress Note Date of Service: 02/13/17 SOAP: Subjective: [] Patient seen at bedside. He is feeling well with well controlled pain. No chest pain, shortness of breath, dizziness, leg numbness, fever or chills. He is voiding on his own and is ready for discharge per physical therapy. Objective: [] Vital Signs Temp 98.0 F 02/13/17 07:45 Pulse 66 02/13/17 07:45 Resp 18 02/13/17 07:58 BP 115/51 02/13/17 07:45 Pulse Ox 95 02/13/17 08:00 Intake & Output 02/12/17 02/13/17 02/13/17 18:59 06:59 18:59 Intake Total 2903 970 Output Total 850 950 Balance 2052 20 Weight 186 lb Intake: IV Fluids 3 LR 1853 NS 50ML, Cefazolin 2G 50 Oral 1000 970 Output: Narvaez 850 950 Laboratory Last Values Hgb 12.6 g/dl (14.0-18.0) L 02/13/17 05:23 Hct 38 % (42-52) L 02/13/17 05:23 INR (Anticoag Therapy) 0.90 (0.77-1.02) 02/13/17 05:22 Sodium 135 mmol/L (133-145) 02/13/17 05:22 Potassium 3.5 mmol/L (3.5-5.0) 02/13/17 05:22 Chloride 104 mmol/L (101-111) 02/13/17 05:22 Carbon Dioxide 27 mmol/L (22-32) 02/13/17 05:22 Anion Gap 4 mmol/L (2-11) 02/13/17 05:22 BUN 13 mg/dL (6-24) 02/13/17 05:22 Creatinine 0.87 mg/dL (0.67-1.17) 02/13/17 05:22 Est GFR ( Amer) 110.6 (>60) 02/13/17 05:22 Est GFR (Non-Af Amer) 86.0 (>60) 02/13/17 05:22 BUN/Creatinine Ratio 14.9 (8-20) 02/13/17 05:22 Glucose 124 mg/dL (70-100) H 02/13/17 05:22 Calcium 8.2 mg/dL (8.6-10.3) L 02/13/17 05:22 General: Well appearing, no acute distress LLE: Drain pulled by Dr. Britton this morning without complication Assessment: []POD 1 s/p left total knee arthroplasty 02/12, Dr. Britton Plan: []WBAT PT/OT Lovenox and coumadin in house, ASA 325 mg BID at discharge DC home today.
[2017-02-13] MEDS ORDERED: amLODIPine TAB* 5 MG PO SCH (09:00)
[2017-02-13] MEDS: Colchicine* 0.6 MG TAB PO SCH (09:09)
[2017-02-13] MEDS: Docusate CAP* 100 MG PO SCH (09:09)
[2017-02-13] MEDS: buPROPion SR TAB.SR* 150 MG PO SCH (09:09)
[2017-02-13] MEDS: ceFAZolin 1 GM VIAL(*) 1 GM in D5W 50 ML BAG* 50 ML IVPB SCH (09:10)
[2017-02-13] MEDS ORDERED: Enoxaparin(*) 40 MG/0.4 ML SYR SUBCUT SCH (12:00)
[2017-02-13] MEDS: oxyCODONE TAB* 5 MG TAB PO PRN (15:36)
[2017-02-13 15:56] VITALS: BP 122/60
[2017-02-13] MEDS ORDERED: Warfarin TAB(*) 4 MG PO ONE (17:00)
--- NOTE | 2017-02-14 06:31 | DS ---
DISCHARGE SUMMARY: DATE OF ADMISSION: 02/12/17 DATE OF DISCHARGE: 02/13/17 DATE OF OPERATION: 02/12/17 DATE OF SERVICE: 02/13/17 ATTENDING SURGEON: Dr. Amber Britton. * (DICTATED BY MIRANDA PADGETT) CONCRETING SUPERVISOR: MIRANDA Scott. PRE-OP DIAGNOSIS: Severe end-stage degenerative osteoarthritis of the left knee joint with varus deformity. OPERATIVE PROCEDURE: Left total knee arthroplasty. HISTORY: Mr. Pichardo is a 71-year-old male with years of increasingly severe left knee pain. Radiographs show [id number] arthritis. He developed varus deformity. He failed conservative treatment with anti-inflammatories, pain medications, intraarticular injections, and physical therapy. Due to increased pain and decreased quality of life, he elected to undergo left total knee arthroplasty. HOSPITAL COURSE: The patient was admitted to [facility] on 02/12/17 when he underwent a left total knee arthroplasty by Dr. Amber Britton, which was uncomplicated. After surgery, he was brought to the PACU and then to the short - stay surgical unit in stable condition. On postop day #1, his Narvaez was removed and he was able to urinate on his own. He participated and achieved his goals with physical therapy. Hemoglobin and hematocrit 12.6/38. Vital signs: Temperature 97.9, pulse 67, respiratory rate 18, oxygen saturation 96, blood pressure 122/60. On exam, he was well appearing and in no acute distress. His drain was pulled by Dr. Britton this morning without complications. Bilateral lower extremities: Calves were supple and nontender without erythema , edema, or palpable cords. Negative Homans sign. Dorsiflexion and plantarflexion intact. Dorsalis pedis and posterior tibial pulses 2+. Sensation intact distally. Dressing was changed prior to patient leaving today. He was deemed medically and orthopedically stable for discharge home and patient desired discharge home. CONSULTS DURING HIS STAY: Occupational Therapy and Physical Therapy as well as hospitalist team. DISCHARGE MEDICATIONS: 1. Wellbutrin 150 mg p.o. b.i.d. 2. Colchicine 0.6 mg p.o. b.i.d. 3. Potassium 50 mg p.o. q.a.m. 4. Glucosamine chondroitin 1 tab p.o. b.i.d. 5. Cinnamon 500 mg p.o. b.i.d. 6. Magnesium 125 mg p.o. q.a.m. 7. Amlodipine 5 mg q.a.m. 8. Acetaminophen 650 mg p.o. q. 4 hours p.r.n., not to exceed 4000 mg per day from all sources. 9. Aspirin 325 mg p.o. b.i.d. for 30 days. 10. Colace 100 mg p.o. t.i.d. 11. Percocet 5/325 mg 1 to 2 tabs p.o. q. 4 to 6 hours p.r.n. for pain, MDD of 12. DISCHARGE INSTRUCTIONS: Weightbearing as tolerated, okay to shower after . No bathing, swimming, or submerging wound. Call orthopedic office for increased drainage, redness, increased pain, or fever. Go to the emergency room with shortness of breath or chest pain. Regular diet. Use Colace as stool softener. Call office if no bowel motion within 48 hours. Continue physical therapy, occupational therapy exercises as shown. Attend outpatient therapy, first appointment is this Saturday. Anticoagulation, aspirin 325 mg p.o. every 12 hours for 1 month. After finished with postoperative prophylaxis , may return to 81 mg tablets daily. Pain control with Percocet 5/325 mg 1 to 2 tabs every 4 to 6 hours as needed for pain, max is 12 tabs per day. Follow up with Dr. Britton within 1 week. MIRANDA PADGETT [id number]/[facility] #: [id number] [facility] HOSPITALSaravanan
== END 2017-02-13 16:00 | disposition home or self-care (01) | DRG 470 ==
LOC: AA 06:35 → SSU 12:38
PROVIDERS: ADMIT Orthopaedic Surgery Adult Reconstructive Orthopaedic Surgery; ATTEND Orthopaedic Surgery Adult Reconstructive Orthopaedic Surgery
PROC: 0SRD0J9 Replacement of Left Knee Joint with Synthetic Substitute, Cemented, Open Approach (ICD-10-PCS; principal; 2017-02-11)
DX: M17.12 Unilateral primary osteoarthritis, left knee (principal); F17.210 Nicotine dependence, cigarettes, uncomplicated; F41.9 Anxiety disorder, unspecified; K21.9 Gastro-esophageal reflux disease without esophagitis; M21.162 Varus deformity, not elsewhere classified, left knee; M25.762 Osteophyte, left knee; M48.00 Spinal stenosis, site unspecified; I25.10 Atherosclerotic heart disease of native coronary artery without angina pectoris; I73.9 Peripheral vascular disease, unspecified; M10.9 Gout, unspecified; I10 Essential (primary) hypertension; Z82.49 Family history of ischemic heart disease and other diseases of the circulatory system; Z88.8 Allergy status to other drugs, medicaments and biological substances; Z98.49 Cataract extraction status, unspecified eye
CPT/HCPCS: 36415; 80048; 85014; 85018; 85610; 94760; A9270-GY; J0690; J1100; J1650; J1885; J2250; J2270; J2405; J2704; J3010

== ENCOUNTER 2017-04-18 08:36 | Inpatient (IN) | payer MEDICARE ==
--- NOTE | 2017-04-05 11:00 | HP ---
HISTORY AND PHYSICAL: DATE OF ADMISSION/SURGERY: 04/18/17 DATE OF OFFICE VISIT: 04/05/17 SURGEON: Amber Britton MD * (DICTATED BY MIRANDA BEY) PROCEDURE: Right total knee arthroplasty. CHIEF COMPLAINT: Right knee pain. HISTORY OF PRESENT ILLNESS: Mr. Pichardo is a 71-year-old gentleman with end- stage osteoarthritis of his right knee. He has failed conservative management and elected to proceed with a right total knee arthroplasty, which is scheduled for 04/18/[address] Britton. PAST MEDICAL HISTORY: Peripheral vascular disease, coronary artery disease, hypertension, depression, BPH with outflow obstruction, hyperlipidemia. PAST SURGICAL HISTORY: Left total knee arthroplasty, right knee arthroscopy, bypass of the right lower extremity, cataract removal, angioplasty of the left lower extremity, cardiac catheterization, lumbar laminectomy, and sinus surgery. CURRENT MEDICATIONS: 1. Magnesium. 2. Wellbutrin 150 mg twice a day. 3. Glucosamine/chondroitin. 4. Cinnamon. 5. Potassium chloride 10 mEq half a tab daily. 6. Aspirin 81 mg daily. 7. Amlodipine 5 mg daily. ALLERGIES: To LIPITOR, ALLOPURINOL, TRANDOLAPRIL, PLETAL, and OXYCODONE. OXYCODONE causes nausea and vomiting. FAMILY HISTORY: Heart disease and diabetes. SOCIAL HISTORY: He is a 71-year-old gentleman. Lives with his . He smokes a pack a day for the last 50 years. He denies use of drugs. Uses occasional alcohol. REVIEW OF SYSTEMS: A complete 14-point review of systems was reviewed with the patient, is positive for hypertension. He denies a history of DVT, PE, hepatitis C, HIV, or anesthesia problems. PHYSICAL EXAMINATION GENERAL: He is well developed, well nourished, in no acute distress. VITAL SIGNS: He stands 5 feet 7 inches tall, weighs 192 pounds, his blood pressure is 160/84, his heart rate is 72. HEENT: Normocephalic, atraumatic. NECK: Supple. No palpable lymph nodes. PULMONARY: The lungs are clear to auscultation bilaterally. CARDIO: Regular rate and rhythm. ABDOMEN: Soft, nontender, nondistended. NEUROLOGICAL: He is alert and oriented x3. Cranial nerves II through XII are intact. MUSCULOSKELETAL: Right lower extremity, the skin is intact. There are no open wounds or abrasions. He has a moderate effusion. He has some tenderness over the medial and lateral joint line. 5 to 100 degrees of flexion with patellofemoral crepitus. 2+ dorsalis pedis pulses. He has intact sensation and his lower extremity muscle group strengths are intact at 5/5. ASSESSMENT AND PLAN: Mr. Pichardo is a 71-year-old gentleman with end-stage osteoarthritis of the right knee. He has failed conservative management and elected to proceed with a right total knee arthroplasty, which is scheduled for 04/18/[address] Britton discussed the risks and benefits of the surgery at today's visit and all of his questions were answered. Postoperatively, he will be placed on aspirin 325 twice a day for DVT prophylaxis and he will follow up with Dr. Britton 2 weeks after the surgery. MIRANDA BEY [id number]/[facility] #: [id number] JARRELL
[~2017-04-18 08:36] MED LIST changes: -Acetaminophen TAB* 325 MG PO ONE; +Famotidine IV* 10 MG/ML 2 ML (20 mg) IV ONE; +Scopolamine 1.5 mg* PATCH TRANSDERM ONE; -Sodium Citrate/Citric Acid* 15 ML UDC PO ONE
--- OUTSIDE RECORDS SUMMARY | 2017-04-18 08:43 | XMS REPORT ---
:1945 External Reference #:[id number] Author Organization [facility] Address [address] [place] [address] Phone [phone] Care Team Providers Name Role Phone Carlos Valente MD Care Team Information Sports Editor Unavailable Carlos Valente MD Primary Care Physician Unavailable Payers Type Date Identification Numbers Payment Provider Subscriber Medicare Primary Effective: Policy Number: [employer] [place] Jus Gerard 2008 [id number] PayID: [id number] [address] [facility] [place] [address] Medigap Part B Effective: Policy Number: [facility] Jus Gerard 2008 [id number] Options PayID: [id number] [place] [address] Problems Date Description Provider Status Onset: 01/18/2015 Hyperlipidemia Carlos Valente M.D. Active Onset: 01/18/2015 Benign prostatic hypertrophy Carlos Valente M.D. Active without outflow obstruction Onset: 04/15/2015 Peripheral vascular disease Carlos Valente M.D. Active Onset: 04/15/2015 Idiopathic gout, multiple sites Carlos Valente M.D. Active Onset: 04/15/2015 Degenerative joint disease Carlos Valente M.D. 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 Active Onset: 01/18/2015 Coronary atherosclerosis due to Carlos Valente M.D. Inactive calcified coronary lesion Inactive: 03/19/2016 Onset: 01/18/2015 Screening for malignant neoplasm of Carlos Valente M.D. Inactive colon Inactive: 03/19/2016 Onset: 03/19/2016 Flatulence, eructation and gas pain Carlos Valente M.D. Inactive Inactive: 04/23/2016 Onset: 04/23/2016 Cellulitis of thigh Carlos Valente M.D. Inactive Inactive: 11/05/2016 Onset: 11/01/2016 Adult health examination Carlos Valente M.D. Inactive Inactive: 11/05/2016 Family History Date Family Member(s) Problem(s) Comments Father Coronary Artery Disease (CAD) Social History Type Date Description Comments Cigarette Use Current Cigarette Smoker 1/2 Pack Daily Smoking Patient is a current smoker, smokes every day Allergies, Adverse Reactions, Alerts Date Description Reaction Status Severity Comments 01/18/2015 Beta Adrenergic Blockers WEAK active 01/18/2015 Allopurinol Urticaria active 04/23/2016 Statins musle weakness active Medications Medication Date Status Form Strength Qnty SIG Indications Ordering Provider Zolpidem Active Tablets ER 6.25mg 30tabs take 1 po Carlos F. Tartrate ER 018 qhs prn Luli Valente Amlodipine Active Tablets 5mg 90tabs 1 by Carlos FCele Besylate 017 mouth Shallish, every day M.D. Ra Potassium Active Tablets 50mg 1 po qd - Carlos FCele Gluconate 017 otc Luli Valente Bupropion HCL Active Tablets ER 150mg 180tab 1 by Carlos F. ER (SR) 015 12HR s mouth Shallish, twice a M.D. day Aspir-[address] 81mg 1 by Carlos F. 000 mouth Shallish, every day M.D. Glucosamine 0 Active Capsules 1500Com 1 by Carlos F. Chondroitin 000 mouth Shallish, 1500 Complex twice a M.D. Maximum day Strength Cinnamon 0 Active Tablets 500mg 1 tab by Carlos F. 000 mouth Shallish, twice a M.D. day Magnesium 0 Active Tablets 250mg 1/2 tabs Carlos F. 000 qd Shallish, M.D. Amlodipine Hx Tablets 5mg 90tabs 1 by Carlos FCele Besylate 017 - mouth Shallish, every day M.D. 017 ALL Day Pain Hx Tablets 220mg 1 q 8hrs Carlos F. Relief 017 - - pain Shallish, M.D. 017 Amlodipine Hx Tablets 2.5mg 90tabs 1 by Carlos F. Besylate 017 - mouth Shallish, every day M.D. 017 Doxycycline Hx Capsules 100mg 20caps take one Carlos F. Hyclate 017 - capsule Shallish, by mouth M.D. 017 twice a day Carafate Hx Tablets 1gm 60tabs take 1 Carlos F. 016 - tablet by Shalllily, mouth 4 M.D. 016 times per day before meals and at bedtime Chantix Hx Tablets 0.5mg X 11 1pack refill Carlos F. Starting Month 016 - & 1 mg with 1 mg Shalllily, Ifeanyi X 42 by mouth M.D. 016 twice a day Colcrys Hx Tablets 0.6mg 180tab 1-2 by Carlos FCele 016 - s mouth Shallish, every day M.D. 018 as needed Allopurinol Hx Tablets 100mg 30tabs 1 by Carlos F. 016 - mouth Shallish, every day M.D. 016 Naproxen Hx Tablets 500mg 30tabs 1 by Carlos F. 016 - mouth bid Shallish, prn M.D. 017 Bupropion HCL Hx Tablets ER 150mg 60tabs 1 po bid Carlos F. ER (XL) 015 - 24HR Shallish, M.D. 015 Zostavax Hx Solution [id number] 1dose inject Carlos FCele 015 - Rec .65ML Shallish, M.D. 016 Pletal 0 Hx Tablets 100mg one by Carlos F. 000 - mouth Shallish, daily M.D. 016 Bupropion HCL Hx Tablets 100mg take 1 Unknown 000 - tablet by mouth 015 twice a day Potassium Hx 300mg One by Carlos F. 000 - mouth Shallish, daily M.D. 017 Magnesium 0 Hx Tablets 200mg one by Carlos F. 000 - mouth Shallish, daily M.D. 017 Cilostazol Hx Tablets 100mg 180tab take 1 Carlos F. 000 - s tablet by Shallish, mouth M.D. 016 twice a day Immunizations CPT Code Status Date Vaccine Lot # [id number] Given 01/28/2017 High-Dose, Influenza Virus Vacccine-fluzone 65 and [id number] older 06229 Given 12/30/2015 High-Dose, Influenza Virus Vacccine-fluzone 65 and [id number] older 82334 Given 01/18/2015 Tdap Tetanus, W Pertussis [id number] Given 01/18/2015 Pneumococcal Conjugate Vacc-13 [id number] Given 01/18/2015 High-Dose, Influenza Virus Vacccine-fluzone 65 and [id number] older 84476 Given 01/02/2015 Zostivax Vital Signs Date Vital Result Comment 03/26/2017 BP Systolic 132 mmHg BP Diastolic 78 mmHg Heart Rate 64 /min Body Temperature 98.6 F Respiratory Rate 16 /min Height 67 inches 5'7" Weight 189.31 lb BMI (Body Mass Index) 29.6 kg/m2 01/28/2017 BP Systolic 152 mmHg BP Diastolic 72 mmHg Heart Rate 72 /min Body Temperature 98.4 F Height 67 inches 5'7" Weight 186.12 lb BMI (Body Mass Index) 29.1 kg/m2 11/01/2016 BP Systolic 130 mmHg BP Diastolic 82 mmHg Heart Rate 78 /min Body Temperature 98.8 F Height 67 inches 5'7" Weight 182.12 lb BMI (Body Mass Index) 28.5 kg/m2 07/06/2016 BP Systolic 144 mmHg BP Diastolic 66 mmHg Heart Rate 84 /min Body Temperature 98.0 F Respiratory Rate 16 /min Height 67 inches 5'7" Weight 204.00 lb BMI (Body Mass Index) 31.9 kg/m2 04/23/2016 BP Systolic 158 mmHg BP Diastolic 94 mmHg Heart Rate 84 /min Respiratory Rate 20 /min Height 67 inches 5'7" Weight 208.00 lb BMI (Body Mass Index) 32.6 kg/m2 03/19/2016 BP Systolic 140 mmHg BP Diastolic 64 mmHg Heart Rate 80 /min Body Temperature 98.6 F Respiratory Rate 16 /min Height 67 inches 5'7" Weight 205.00 lb BMI (Body Mass Index) 32.1 kg/m2 12/30/2015 BP Systolic 186 mmHg BP Diastolic 84 mmHg Heart Rate 60 /min Body Temperature 97.4 F Respiratory Rate 16 /min Height 67 inches 5'7" Weight 201.50 lb BMI (Body Mass Index) 31.6 kg/m2 09/02/2015 BP Systolic 178 mmHg BP Diastolic 94 mmHg Heart Rate 72 /min Body Temperature 99.0 F Respiratory Rate 16 /min Height 67 inches 5'7" Weight 201.00 lb BMI (Body Mass Index) 31.5 kg/m2 04/15/2015 BP Systolic 160 mmHg BP Diastolic 80 mmHg Heart Rate 80 /min Body Temperature 98.4 F Respiratory Rate 16 /min Height 67 inches 5'7" Weight 196.00 lb BMI (Body Mass Index) 30.7 kg/m2 01/18/2015 BP Systolic 150 mmHg BP Diastolic 90 mmHg Heart Rate 84 /min Body Temperature 97.8 F Respiratory Rate 16 /min Height 67 inches 5'7" Weight 201.25 lb BMI (Body Mass Index) 31.5 kg/m2 Results Test Date Test Result H/L Range Note Urinalysis Profile 01/30/2017 Urine Color Yellow 1 Urine Appearance Clear 1 Urine Specific [place] 1.019 1.010-1.030 1 Urine pH 5.0 5-9 1 Urine Urobilinogen Negative Negative 1 Urine Ketones Negative Negative 1 Urine Protein Negative Negative 1 Urine Leukocytes Negative Negative 1 Urine Blood Negative Negative 1 Urine Nitrite Negative Negative 1 Urine Bilirubin Negative Negative 1 Urine Glucose Negative Negative 1 CBC No Diff 01/30/2017 White Blood Count 7.5 10^3/uL 3.5-10.8 1 Red Blood Count 4.88 10^6/uL 4.0-5.4 1 Hemoglobin 15.8 g/dL 14.0-18.0 1 Hematocrit 47 % 42-52 1 Mean Corpuscular Volume 96 fL High 80-94 1 Mean Corpuscular Hemoglobin 33 pg High 27-31 1 Mean Corpuscular HGB Conc 34 g/dL 31-36 1 Red Cell Distribution Width 14 % 10.5-15 1 Platelet Count 204 10^3/uL 150-450 1 Mean Platelet Volume 10 um3 7.4-10.4 1 Comp Metabolic Panel 01/30/2017 Sodium 139 mmol/L 133-145 1 Potassium 3.9 mmol/L 3.5-5.0 1 Chloride 105 mmol/L 101-111 1 Co2 Carbon Dioxide 28 mmol/L 22-32 1 Anion Gap 6 mmol/L 2-11 1 Glucose 82 mg/dL 70-100 1 Blood Urea Nitrogen 14 mg/dL 6-24 1 Creatinine 0.85 mg/dL 0.67-1.17 1 BUN/Creatinine Ratio 16.5 8-20 1 Calcium 9.0 mg/dL 8.6-10.3 1 Total Protein 6.9 g/dL 6.4-8.9 1 Albumin 4.4 g/dL 3.2-5.2 1 Globulin 2.5 g/dL 2-4 1 Albumin/Globulin Ratio 1.8 1-3 1 Total Bilirubin 0.50 mg/dL 0.2-1.0 1 Alkaline Phosphatase 74 U/L 34-104 1 Alt 19 U/L 7-52 1 Ast 23 U/L 13-39 1 Egfr Non- 88.4 >60 1 Egfr 113.6 >60 1, 2 Inr/Protime 01/30/2017 Inr 0.90 0.89-1.11 1 Laboratory test finding 01/30/2017 Partial Thrombo Time 34.8 seconds 26.0 -36.3 1, 3 PTT Type & Screen 01/30/2017 Patient Blood Type A Positive 1 Antibody Screen NEGATIVE 1 Laboratory test 01/30/2017 Urine Culture And SEE RESULT BELOW 1, 4 finding Sensitivities Ict Hemoccult (Fma) 11/28/2016 Ict Hemoccult (1) 11/04/16 neg Ict Hemoccult-(2) 11/05/16 neg Ict-Hemoccult (3) 11/06/16 neg Ua - Non Micro (Fma) 11/01/2016 Appearance clear Color yellow Glucose, Urine (Fma/CMC/CTX) neg Bilirubin neg Ketones neg SP Grav 1.015 Blood neg PH 7.0 Protein neg Urobil 0.2 Nitrite neg Leukocytes (a/[facility]/Centrex) neg Laboratory test finding 11/01/2016 Free T4 1.36 ng/dL 0.75-1.54 TSH 0.74 mIU/L 0.50-6.00 PSA 0.9 ng/mL 0.0-4.0 Uric Acid 7.4 mg/dL 2.5-9.2 CBC Electronic ([facility]) 11/01/2016 WBC 11.2 High 3.6-9.6 RBC 4.96 3.90-5.70 Hemoglobin (Fma/CMC/CTX) 15.9 g/dL 12.1 - 17.2 Hematocrit (a/CMC/CTX) 47.1 % 36.1 - 50.3 Platelets 358 10^3/ul 150-400 Lymph% 23.7 % 17.0-48.0 Mixed% 3.4 Neutrophils % 72.9 Mean Corpuscular Vol 95 82.2-97.4 Mean Corpuscular Hemoglobin 32.0 27.6-33.3 Mean Corpuscular Hemo Concen 33.7 32.0-36.0 RDW 14.1 High 11.6-13.7 Mean Platelet Volume 7.8 5.5-11.0 Lipid Profile 11/01/2016 Cholesterol 218 mg/dL High 120-200 Triglycerides 138 mg/dL 30-200 HDL Cholesterol 61 mg/dL 30-70 LDL (Calculated) 129 CALC 0-129 VLDL Cholesterol 28 mg/dL 0-50 HDL Risk Factor 3.6 CALC 0.0-4.4 Comprehensive Metabolic Prof 11/01/2016 Sodium 140 mEq/L 134-149 Potassium 4.9 mEq/L 3.6-5.5 Chloride 99 mEq/L 94-112 Carbon Dioxide 27 mEq/L 21-32 Glucose 105 mg/dL 70-105 BUN 11 mg/dL 6-26 Creatinine 0.8 mg/dL 0.6-1.4 BUN/Creat Ratio 13.8 CALC 8.0-36.0 Calcium 9.2 mg/dL 8.6-10.2 Total Protein 7.3 g/dL 6.4-8.3 Albumin 4.6 g/dL 3.8-5.5 Globulin 2.7 g/dL 2.0-4.8 A/G Ratio 1.7 CALC 0.6-2.3 Alk. Phosphatase 136 U/L High 22-95 5 Alt (SGPT) 52 U/L High 7-35 6 Ast (Sgot) 21 U/L 5-34 Total Bilirubin 0.4 mg/dL 0.2-1.3 GFR Non- >60 ml/min/1.73m^ >=60 GFR >60 ml/min/1.73m^ >=60 Type & Screen 10/20/2016 Patient Blood Type A Positive Antibody Screen NEGATIVE Laboratory test finding 10/20/2016 Lipase 33 U/L 11.0-82.0 Troponin I 0.01 ng/mL <0.04 B-Type Natriuretic Peptide BNP 32 pg/mL 7 Comp Metabolic Panel 10/20/2016 Sodium 138 mmol/L 133-145 Chloride 108 mmol/L 101-111 Co2 Carbon Dioxide 25 mmol/L 22-32 Glucose 105 mg/dL High 70-100 Blood Urea Nitrogen 23 mg/dL 6-24 Creatinine 0.90 mg/dL 0.67-1.17 BUN/Creatinine Ratio 25.6 High 8-20 Calcium 8.6 mg/dL 8.6-10.3 Total Protein 6.7 g/dL 6.4-8.9 Albumin 4.0 g/dL 3.2-5.2 Globulin 2.7 g/dL 2-4 Albumin/Globulin Ratio 1.5 1-3 Total Bilirubin 0.50 mg/dL 0.2-1.0 Alkaline Phosphatase 57 U/L 34-104 Alt 25 U/L 7-52 Egfr Non- 82.7 >60 Egfr 106.4 >60 8 Potassium 4.1 mmol/L 3.5-5.0 Anion Gap 5 mmol/L 2-11 Ast 42 U/L High 13-39 CBC Auto Diff 10/20/2016 White Blood Count 11.3 10^3/uL High 3.5-10.8 Red Blood Count 4.55 10^6/uL 4.0-5.4 Hemoglobin 14.4 g/dL 14.0-18.0 Hematocrit 43 % 42-52 Mean Corpuscular Volume 95 fL High 80-94 Mean Corpuscular Hemoglobin 32 pg High 27-31 Mean Corpuscular HGB Conc 33 g/dL 31-36 Red Cell Distribution Width 14 % 10.5-15 Platelet Count 187 10^3/uL 150-450 Mean Platelet Volume 10 um3 7.4-10.4 Abs Neutrophils 8.0 10^3/uL High 1.5-7.7 Abs Lymphocytes 2.0 10^3/uL 1.0-4.8 Abs Monocytes 0.9 10^3/uL High 0-0.8 Abs Eosinophils 0.3 10^3/uL 0-0.6 Abs Basophils 0.1 10^3/uL 0-0.2 Abs Nucleated RBC 0 10^3/uL Granulocyte % 70.8 % 38-83 Lymphocyte % 17.8 % Low 25-47 Monocyte % 8.3 % 1-9 Eosinophil % 2.6 % 0-6 Basophil % 0.5 % 0-2 Nucleated Red Blood Cells % 0 Laboratory test 10/20/2016 Lactic Acid 0.9 mmol/L 0.5-2.0 9 finding Laboratory test 10/20/2016 Partial Thrombo 29.1 seconds 26.0-36.3 finding Time PTT Inr/Protime 10/20/2016 Inr 0.86 Low 0.89-1.11 Aerobic Bacterial 04/23/2016 Aerobic Bacterial Final report 10, 11 Culture Culture Result 1 Escherichia coli 10, 12 Antimicrobial Susceptibility See Comment: 10, 13 Laboratory test finding 03/19/2016 TSH 0.52 mIU/L 0.50-6.00 LDL, Direct 120 mg/dL 0-130 Lipid Profile 03/19/2016 Cholesterol 228 mg/dL High 120-200 Triglycerides 405 mg/dL High 30-200 HDL Cholesterol 53 mg/dL 30-70 LDL (Calculated) 94 CALC 0-129 VLDL Cholesterol 81 mg/dL High 0-50 HDL Risk Factor 4.3 CALC 0.0-4.4 Complete Blood Count 03/19/2016 WBC 10.0 x10^3/UL High 3.6-9.6 RBC 4.77 x10^6/UL 3.90-5.70 HGB 15.4 g/dL 12.1-17.2 HCT 45 % 36-50 MCV 94.0 fL 82.2-97.4 MCH 32.3 pg 27.6-33.3 MCHC 34.4 g/dL 33.0-35.5 RDW 13.4 % 11.6-13.7 PLT 203 x10^3/UL 150-400 MPV 7.5 fL 7.4-10.4 Gran # 6.0 x10^3/UL 1.5-7.2 Lymph# 3.4 x10^3/UL 0.7-4.9 Swain# 0.6 x10^3/UL 0.1-0.9 Gran % 59.7 % 42.2-75.2 Lymph % 34.2 % 20.5-51.1 Swain% 6.1 % 1.7-9.3 Comprehensive Metabolic Prof 03/19/2016 Sodium 141 mEq/L 134-149 Potassium 3.9 mEq/L 3.6-5.5 Chloride 102 mEq/L 94-112 Carbon Dioxide 25 mEq/L 21-32 Glucose 111 mg/dL High 70-105 14 BUN 19 mg/dL 6-26 Creatinine 0.9 mg/dL 0.6-1.4 BUN/Creat Ratio 21.1 CALC 8.0-36.0 Calcium 9.8 mg/dL 8.6-10.2 Total Protein 7.7 g/dL 6.4-8.3 Albumin 4.6 g/dL 3.8-5.5 Globulin 3.1 g/dL 2.0-4.8 A/G Ratio 1.5 CALC 0.6-2.3 Alk. Phosphatase 68 U/L 22-95 Alt (SGPT) 22 U/L 7-35 Ast (Sgot) 24 U/L 5-34 Total Bilirubin 0.4 mg/dL 0.2-1.3 GFR Non- >60 ml/min/1.73m^ >=60 GFR >60 ml/min/1.73m^ >=60 Laboratory test finding 12/30/2015 TSH 0.75 mIU/L 0.50-6.00 Lipid Profile 12/30/2015 Cholesterol 238 mg/dL High 120-200 Triglycerides 111 mg/dL 30-200 HDL Cholesterol 65 mg/dL 30-70 LDL (Calculated) 151 CALC High 0-129 VLDL Cholesterol 22 mg/dL 0-50 HDL Risk Factor 3.7 CALC 0.0-4.4 Complete Blood Count 12/30/2015 WBC 8.3 x10^3/UL 3.6-9.6 RBC 5.10 x10^6/UL 3.90-5.70 HGB 16.6 g/dL 12.1-17.2 HCT 48 % 36-50 MCV 94.0 fL 82.2-97.4 MCH 32.6 pg 27.6-33.3 MCHC 34.6 g/dL 33.0-35.5 RDW 13.8 % High 11.6-13.7 PLT 186 x10^3/UL 150-400 MPV 7.9 fL 7.4-10.4 Gran # 5.5 x10^3/UL 1.5-7.2 Lymph# 2.5 x10^3/UL 0.7-4.9 Swain# 0.3 x10^3/UL 0.1-0.9 Gran % 64.9 % 42.2-75.2 Lymph % 30.7 % 20.5-51.1 Swain% 4.4 % 1.7-9.3 Laboratory test finding 12/30/2015 PSA 0.6 ng/mL 0.0-4.0 Comprehensive Metabolic Prof 12/30/2015 Sodium 143 mEq/L 134-149 Potassium 4.3 mEq/L 3.6-5.5 Chloride 103 mEq/L 94-112 Carbon Dioxide 25 mEq/L 21-32 Glucose 97 mg/dL 70-105 BUN 16 mg/dL 6-26 Creatinine 0.8 mg/dL 0.6-1.4 BUN/Creat Ratio 20.0 CALC 8.0-36.0 Calcium 8.7 mg/dL 8.6-10.2 Total Protein 7.3 g/dL 6.4-8.3 Albumin 4.6 g/dL 3.8-5.5 Globulin 2.7 g/dL 2.0-4.8 A/G Ratio 1.7 CALC 0.6-2.3 Alk. Phosphatase 72 U/L 22-95 Alt (SGPT) 20 U/L 7-35 Ast (Sgot) 25 U/L 5-34 Total Bilirubin 0.8 mg/dL 0.2-1.3 GFR Non- >60 ml/min/1.73m^ >=60 GFR >60 ml/min/1.73m^ >=60 Ua - Non Micro (Fma) 12/30/2015 Appearance yellow Color clear Glucose, Urine (Fma/CMC/CTX) neg Bilirubin neg Ketones neg SP Grav 1.015 Blood neg PH 7.0 Protein neg Urobil 0.2 Nitrite neg Leukocytes (Fma/CMC/Centrex) neg Ict-Hemoccult (MCR)Fma Screeni 02/07/2015 Ict Hemoccult (1) 01/24/15 NEG Ict Hemoccult-(2) 01/25/15 NEG Ict-Hemoccult (3) 01/26/15 NEG Laboratory test finding 01/19/2015 [facility] [place] Lab Test COLOGUARD Lipid Profile 01/18/2015 Cholesterol 207 mg/dL High 120-200 Triglycerides 74 mg/dL 30-200 HDL Cholesterol 72 mg/dL High 30-70 15 LDL (Calculated) 120 CALC 0-129 VLDL Cholesterol 15 mg/dL 0-50 HDL Risk Factor 2.9 CALC 0.0-4.4 Comprehensive Metabolic Prof 01/18/2015 Sodium 139 mEq/L 134-149 Potassium 3.8 mEq/L 3.6-5.5 Chloride 99 mEq/L 94-112 Carbon Dioxide 26 mEq/L 21-32 Glucose 100 mg/dL 70-105 BUN 14 mg/dL 6-26 Creatinine 0.8 mg/dL 0.6-1.4 BUN/Creat Ratio 17.5 CALC 8.0-36.0 Calcium 9.4 mg/dL 8.6-10.2 Total Protein 7.2 g/dL 6.4-8.3 Albumin 4.8 g/dL 3.8-5.5 Globulin 2.4 g/dL 2.0-4.8 A/G Ratio 2.0 CALC 0.6-2.3 Alk. Phosphatase 73 U/L 22-95 Alt (SGPT) 19 U/L 7-35 Ast (Sgot) 29 U/L 5-34 Total Bilirubin 0.5 mg/dL 0.2-1.3 GFR Non- >60 ml/min/1.73m^ >=60 GFR >60 ml/min/1.73m^ >=60 Laboratory test finding 01/18/2015 TSH 1.03 mIU/L 0.50-6.00 Complete Blood Count 01/18/2015 WBC 8.1 x10^3/UL 3.6-9.6 RBC 4.84 x10^6/UL 3.90-5.70 HGB 15.5 g/dL 12.1-17.2 HCT 46 % 36-50 MCV 94.0 fL 82.2-97.4 MCH 32.1 pg 27.6-33.3 MCHC 34.0 g/dL 33.0-35.5 RDW 13.5 % 11.6-13.7 PLT 227 x10^3/UL 150-400 MPV 8.2 fL 7.4-10.4 Gran # 4.1 x10^3/UL 1.5-7.2 Lymph# 3.4 x10^3/UL 0.7-4.9 Swain# 0.6 x10^3/UL 0.1-0.9 Gran % 50.2 % 42.2-75.2 Lymph % 42.1 % 20.5-51.1 Swain% 7.7 % 1.7-9.3 Laboratory test finding 01/18/2015 PSA 0.5 ng/mL 0.0-4.0 Ua - Non Micro (Fma) 01/18/2015 Appearance CLEAR Color YELLOW Glucose, Urine (Fma/CMC/CTX) NEG Bilirubin NEG Ketones NEG SP Grav 1.020 Blood NEG PH 5.5 Protein NEG Urobil 0.2 Nitrite NEG Leukocytes (Fma/CMC/Centrex) NEG 1 02/12 2 Because ethnic data is not always readily available, this report includes an eGFR for both -Americans and non- Americans. The National Kidney Disease Education Program (NKDEP) does not endorse the use of the MDRD equation for patients that are not between the ages of 18 and 70, are , have extremes of body size, muscle mass, or nutritional status, or are non- or non-. According to the National Kidney Foundation, irrespective of diagnosis, the stage of the disease is based on the level of kidney function: Stage Description GFR(mL/min/1.73 m(2)) 1 Kidney damage with normal or decreased GFR 90 2 Kidney damage with mild decrease in GFR 60-89 3 Moderate decrease in GFR 30-59 4 Severe decrease in GFR 15-29 5 Kidney failure <15 (or dialysis) 3 02/12 4 SEE RESULT BELOW Name: JUS GERARD : [address]: Amber Britton MD Acct: [id number] Unit: [id number] AGE: 71 Location: [facility] Re01/30/17 SEX: M Status: REG REF SPEC: [id number] FENG: 01/30/17-1440 [facility] DR: Amber Britton MD REQ: [id number] RECD: 01/30/17 STATUS: JOSE JJ DR: Carlos Valente MD _ SOURCE: URINE SPDESC: ORDERED: Urine Culture COMMENTS: DEMETRIA 02/12 QUERIES: Urine Source: Clean Catch Procedure Result Reported Site Urine Culture Final 01/31/17- 1352 ML No Growth (<1,000 CFU/mL) * ML - MAIN LAB ([facility]) . END OF REPORT * ML=Testing performed at Main Lab DEPARTMENT OF PATHOLOGY, [address] [place] [address] Taran Castle M.D. Director [facility] # [id number] 5 RESULTS VERIFIED BY REPEAT ANALYSIS 6 RESULTS VERIFIED BY REPEAT ANALYSIS 7 >100 to <200 pg/mL: likely compensated congestive heart failure (CHF) 200 to 400 pg/mL: likely moderate CHF >400 pg/mL: likely moderate to severe CHF 8 Because ethnic data is not always readily available, this report includes an eGFR for both -Americans and non- Americans. The National Kidney Disease Education Program (NKDEP) does not endorse the use of the MDRD equation for patients that are not between the ages of 18 and 70, are , have extremes of body size, muscle mass, or nutritional status, or are non- or non-. According to the National Kidney Foundation, irrespective of diagnosis, the stage of the disease is based on the level of kidney function: Stage Description GFR(mL/min/1.73 m(2)) 1 Kidney damage with normal or decreased GFR 90 2 Kidney damage with mild decrease in GFR 60-89 3 Moderate decrease in GFR 30-59 4 Severe decrease in GFR 15-29 5 Kidney failure <15 (or dialysis) 9 Specimen hemolyzed. Result may not be valid. [facility] Severe Sepsis and Septic Shock Management Bundle Measure requires all lactic acids initially measuring >2.0 mmol/L be repeated. 10 SRC: RIGHT LEG n culture swab 11 Source of Specimen: RIGHT LEG 12 Escherichia coli Source of Specimen: RIGHT LEG Heavy growth 13 Source of Specimen: RIGHT LEG S=Susceptible; I=Intermediate; R=Resistant P=Positive; N=Negative MICS are expressed in micrograms per mL Antibiotic RSLT#1 RSLT#2 RSLT#3 RSLT#4 Amoxicillin/Clavulanic Acid S Ampicillin S Cefepime S Ceftriaxone S Cefuroxime S Ciprofloxacin S Ertapenem S Gentamicin S Imipenem S Levofloxacin S Piperacillin S Tetracycline R Tobramycin S Trimethoprim/Sulfa S 14 NON-FASTING 15 RESULTS VERIFIED BY REPEAT ANALYSIS Procedures Date CPT Code Description Status 11/01/2016 92548 Electrocardiogram Complete Completed 03/19/2016 08468 Electrocardiogram Complete Completed Encounters Type Date Location Provider CPT E/M Dx Office Visit 01/28/2017 11:20a [facility] Office Carlos Valente M.D. 62363 Z23 I73.89 E78.4 I10 I25.10 F17.210 Office Visit 11/01/2016 9:00a Main Office Carlos Valente M.D. 86623 I10 E78.4 I73.89 F17.210 N40.0 I25.10 Z00.00 M10.09 M15.0 Z79.82 Office Visit 07/06/2016 10:40a [facility] Office Carlos Valente M.D. 66731 I10 I73.89 E78.4 F17.210 Office Visit 04/23/2016 3:00p [facility] Office Carlos Valente M.D. 83833 L03.115 I25.10 I73.89 Office Visit 03/19/2016 3:00p [facility] Office Carlos Valente M.D. 95176 I25.10 E78.4 F17.210 I73.89 R14.0 E78.1 Office Visit 12/30/2015 10:00a [facility] Office Carlos Valente M.D. 82829 I73.89 M15.0 E78.4 N40.0 M10.09 Z23 Office Visit 09/02/2015 10:20a [facility] Office Carlos Valente M.D. 62697 I73.89 M15.0 F32.8 F17.210 I25.10 M10.09 Office Visit 04/15/2015 10:40a [facility] Office Carlos Valente M.D. 90220 I25.84 I73.89 E78.4 M10.09 M15.0 F32.8 Office Visit 01/18/2015 6:40p Main Office Carlos Valente M.D. 56651 E78.4 I25.84 Z12.11 Z23 N40.0 F32.8 Plan of Care Future Appointment(s):08/02/2017 9:50 am - Carlos Valente M.D. at [facility] Xbtxfb5803/26/2017 - Carlos Valente M.D.I73.89 Other specified peripheral vascular gjmyqszjS42.0 Primary generalized (osteo)efsesggepO79.10 Athscl heart disease of [place] coronary artery w/o ang pctrsAllNew Medication:Zolpidem Tartrate ER 6.25 mgComments:~B_~U_Medication Management~b_~u_ Patient Understands medications he's taking? Yes No Are there Barriers to Adherence? Yes No Has the patient been asked about herbal supplements and therapies, and OTC meds? Yes No Patient continues to do very well following his left knee replacement. He had been seen in consultation by Dr. Dangelo in January of 2017 and also is followed by vascular surgery, Dr. Argueta at [facility]. He is feeling well and continues with physical therapy after having his left knee replacement. I now feel he is medically cleared for the right knee replacemenet. We will try zolpidem to help his chronic insomnia
--- OUTSIDE RECORDS SUMMARY | 2017-04-18 08:43 | XMS REPORT ---
:1945 External Reference #:[id number] Author Organization [facility] [employer] Address [address] [address] Phone [phone] Care Team Providers Name Role Phone Carlos Valente MD Primary Care Physician Unavailable Payers Type Date Identification Numbers Payment Provider Subscriber Medicare Primary Effective: Policy Number: Medicare Jus Gerard 2008 [id number] PayID: [id number] [address] [place] [address] [facility] Policy Number: [id number] [facility] Jus Gerard PayID: [id number] [address] [place] [address] Problems Date Description Provider Status Onset: 03/20/2011 Peripheral vascular disease Hubert Cartagena M.D. Onset: 03/20/2011 Tobacco user Hubert Cartagena M.D. Onset: 03/20/2011 Benign essential hypertension Hubert Cartagena M.D. Onset: 03/20/2011 Hyperlipidemia Hubert Cartagena M.D. Onset: 03/20/2011 Preoperative cardiovascular Hubert Cartagena M.D. Onset: 06/08/2011 Coronary arteriosclerosis Hubert Cartagena M.D. Onset: 06/08/2011 Premature beats Hubert Cartagena M.D. Onset: 02/27/2012 Electrocardiogram abnormal Hubert Cartagena M.D. Onset: 02/27/2012 Second degree atrioventricular Hubert Cartagena M.D. Onset: 02/01/2015 Localized, primary osteoarthritis Jimmy Varner M.D. Active Onset: 05/14/2016 Open fracture of middle AND/OR Vicente Alcantara MD Active proximal phalanx of finger Onset: 05/14/2016 Open fracture of one or more Vicente Alcantara MD Active phalanges of hand Onset: 02/22/2017 Arthroplasty of knee Amber Britton M.D. 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 [employer] Cigarette Use Heavy tobacco smoker (more than 10 cigarettes/day) ETOH Use Consumes 1 beer per day Recreational Drug Use Denies Drug Use Smoking Patient is a current smoker, 1ppd smokes every day Daily Caffeine Consumes on average 2 cups of regular coffee per day Exercise Type/Frequency Exercises regularly works on the [employer] Allergies, Adverse Reactions, Alerts Date Description Reaction Status Severity Comments 03/20/2011 Lipitor muscle pain weakness active 09/11/2013 Allopurinol active muscle aches 09/11/2013 Trandolapril active 12/16/2015 Pletal active GI upset 02/22/2017 Oxycodone Nausea and Vomiting active 03/19/2011 NKDA inactive Medications Medication Date Status Form Strength Qnty SIG Indications Ordering Provider Magnesium Active Capsules 1/2 tab Other 014 po once a Ordering day Provider Wellbutrin SR Active Tablets ER 150mg 30tabs 1 po bid Unknown 000 12HR Glucosamine Active Capsules 1500Com 1 po bid Unknown Chondroitin 000 1500 Complex Cinnamon Active Capsules 500mg 1 po bid Unknown 000 Potassium Active Capsules ER 10Meq 1/2 tab Unknown Chloride ER 000 po daily Aspirin Active Tablets 81mg 1 by Unknown 000 mouth every day On Hold Amlodipine 0 Active Tablets 5mg Take 1 Unknown Besylate 000 Tablet By Mouth Once Daily Cephalexin Hx Capsules 500mg 60caps 1 capsule Z47.1 Amber 017 - by mouth Tobi, every 6 M.D. 018 hours Percocet Hx Tablets 5-325mg 90tabs take 1-2 Amber 017 - tabs by Tobi, mouth M.D. 017 q4-6 hours as needed pain Keflex Hx Capsules 500mg 21caps by mouth S62.521D Vicente Naik 017 - every 8 Maricruz, hours x 7 MD 017 days Cephalexin Hx Capsules 500mg 28caps one Vicente Heena 017 - tablet Maricruz, four MD 017 times a day for 10 days Mavik Hx Tablets 4mg 30tabs one po qd Qutaybeh 012 - S. Maghaydah, 014 M.D. Mavik 00/0 Hx Tablets 2mg 30tabs 1 po qd Unknown 000 - 012 Allopurinol 00/0 Hx Tablets 300mg 30tabs 1 po qd Unknown 000 - 014 Collagen OTC 00/0 Hx Cream 1 po qd Unknown 000 - 014 Colchicine 00/0 Hx Tablets 0.6mg 30tabs 1 po bid Unknown 000 - prn 014 Pletal 00/0 Hx Tablets 1 by Unknown 000 - mouth every day 016 Cephalexin 00/0 Hx Capsules 500mg Unknown 000 - 017 Hydrocodone-Ac /0 Hx Tablets 5-325mg Unknown etaminophen 000 - 017 Colcrys 00/0 Hx Tablets 0.6mg 1 po bid Unknown 000 - 018 Colchicine /00/0 Hx Unknown 000 - 017 Aspirin /[address] 325mg take 1 by Unknown 000 - mouth once a 018 day for two weeks Medications Administered in Office Medication Date Status Form Strength Qnty SIG Indications Ordering Provider Triamcinolone 02/01/ Administered Injection Jimmy (Kenalog) Diamond Varner M.D. Vital Signs Date Vital Result Comment 04/05/2017 Height 67 inches 5'7" Weight 192.00 lb Heart Rate 72 /min BP Systolic 160 mmHg BP Diastolic 84 mmHg BMI (Body Mass Index) 30.1 kg/m2 03/22/2017 Height 67 inches 5'7" Weight 185.00 lb per pt Heart Rate 70 /min reg BP Systolic Sitting 136 mmHg Rue BP Diastolic Sitting 80 mmHg Rue Respiratory Rate 16 /min Body Temperature 97.1 F tympanic Pain Level 4 left knee BMI (Body Mass Index) 29.0 kg/m2 03/15/2017 Height 67 inches 5'7" Weight 185.00 lb BP Systolic 148 mmHg BP Diastolic 80 mmHg Body Temperature 97.8 F Pain Level 3 BMI (Body Mass Index) 29.0 kg/m2 02/22/2017 Height 68 inches 5'8" Weight 186.00 lb per pt BP Systolic Sitting 120 mmHg Rue, reg cuff BP Diastolic Sitting 70 mmHg Rue, reg cuff Respiratory Rate 16 /min Body Temperature 97.1 F tympanic Pain Level 1 left knee BMI (Body Mass Index) 28.3 kg/m2 01/30/2017 Height 68 inches 5'8" Weight 186.00 lb Heart Rate 64 /min BP Systolic 166 mmHg BP Diastolic 86 mmHg BMI (Body Mass Index) 28.3 kg/m2 01/29/2017 Height 68 inches 5'8" Weight 186.00 lb with shoes Heart Rate 84 /min BP Systolic Sitting 160 mmHg LA reg cuff BP Diastolic Sitting 80 mmHg LA reg cuff BMI (Body Mass Index) 28.3 kg/m2 Ejection Fraction 55% - 60% echo 03/31/11 12/24/2016 Height 68 inches 5'8" Weight 195.00 lb BP Systolic 138 mmHg BP Diastolic 82 mmHg Respiratory Rate 20 /min Pain Level 7 BMI (Body Mass Index) 29.6 kg/m2 10/16/2016 Height 68 inches 5'8" Weight 181.25 lb with shoes Heart Rate 76 /min BP Systolic Sitting 126 mmHg LA reg cuff BP Diastolic Sitting 70 mmHg LA reg cuff BMI (Body Mass Index) 27.6 kg/m2 Ejection Fraction 55% - 60% 03/31/11/ echo 08/27/2016 Height 68 inches 5'8" Weight 210.00 lb BP Systolic 132 mmHg BP Diastolic 74 mmHg Respiratory Rate 15 /min Pain Level 1 BMI (Body Mass Index) 31.9 kg/m2 06/21/2016 Height 68 inches 5'8" Weight 210.00 lb Heart Rate 82 /min BP Systolic 185 mmHg BP Diastolic 100 mmHg Respiratory Rate 15 /min Pain Level 1 BMI (Body Mass Index) 31.9 kg/m2 05/31/2016 Height 68 inches 5'8" Weight 210.00 lb Heart Rate 76 /min Respiratory Rate 15 /min Body Temperature 97.6 F Pain Level 2 BMI (Body Mass Index) 31.9 kg/m2 05/24/2016 Height 68 inches 5'8" Weight 210.00 lb Heart Rate 62 /min BP Systolic 142 mmHg BP Diastolic 83 mmHg Body Temperature 98.0 F Pain Level 2 BMI (Body Mass Index) 31.9 kg/m2 05/24/2016 Height 68 inches 5'8" Weight 210.00 lb BMI (Body Mass Index) 31.9 kg/m2 05/14/2016 Height 68 inches 5'8" Weight 210.00 lb Heart Rate 68 /min BP Systolic Sitting 146 mmHg BP Diastolic Sitting 88 mmHg Respiratory Rate 16 /min Body Temperature 97.5 F Pain Level 2 BMI (Body Mass Index) 31.9 kg/m2 12/16/2015 Height 68 inches 5'8" Weight 201.00 lb w/shoes Heart Rate 56 /min BP Systolic Sitting 182 mmHg LA reg cuff BP Diastolic Sitting 102 mmHg LA reg cuff BMI (Body Mass Index) 30.6 kg/m2 Ejection Fraction 55-60% Echo 03/31/11 08/22/2015 Height 68 inches 5'8" Weight 190.00 lb Pain Level 1 BMI (Body Mass Index) 28.9 kg/m2 08/05/2015 Height 68 inches 5'8" Weight 190.00 lb Heart Rate 76 /min Respiratory Rate 18 /min Pain Level 1 BMI (Body Mass Index) 28.9 kg/m2 07/25/2015 Height 68 inches 5'8" Weight 190.00 lb Body Temperature 98.0 F Pain Level 2 BMI (Body Mass Index) 28.9 kg/m2 07/18/2015 Height 68 inches 5'8" Weight 190.00 lb Pain Level 2 BMI (Body Mass Index) 28.9 kg/m2 06/08/2015 Height 68 inches 5'8" Weight 205.25 lb with shoes Heart Rate 64 /min irreg BP Systolic Sitting 144 mmHg LA, large BP Diastolic Sitting 94 mmHg LA, large BMI (Body Mass Index) 31.2 kg/m2 Ejection Fraction 55-60% echo 03/31/11 02/21/2015 Height 68 inches 5'8" Weight 195.00 lb Pain Level 2 BMI (Body Mass Index) 29.6 kg/m2 11/02/2014 Height 68 inches 5'8" Weight 195.00 lb Heart Rate 68 /min BP Systolic Sitting 168 mmHg left arm, reg cuff BP Diastolic Sitting 72 mmHg left arm, reg cuff BMI (Body Mass Index) 29.6 kg/m2 Ejection Fraction 55-60% 03/31/11 02/18/2014 Height 68 inches 5'8" Weight 200.00 lb Heart Rate 51 /min BP Systolic 140 mmHg LA reg BP Diastolic 100 mmHg LA reg BMI (Body Mass Index) 30.4 kg/m2 09/11/2013 Height 68 inches 5'8" Weight 193.00 lb Heart Rate 76 /min BP Systolic Sitting 152 mmHg BP Diastolic Sitting 78 mmHg Respiratory Rate 16 /min BMI (Body Mass Index) 29.3 kg/m2 10/27/2012 Height 68 inches 5'8" Weight 188.00 lb Heart Rate 76 /min BP Systolic Sitting 152 mmHg BP Diastolic Sitting 80 mmHg Respiratory Rate 16 /min BMI (Body Mass Index) 28.6 kg/m2 08/05/2012 Height 68 inches 5'8" Weight 182.00 lb Heart Rate 88 /min BP Systolic Sitting 132 mmHg BP Diastolic Sitting 76 mmHg Respiratory Rate 16 /min BMI (Body Mass Index) 27.7 kg/m2 02/27/2012 Height 68 inches 5'8" Weight 188.00 lb Heart Rate 81 /min BP Systolic 170 mmHg BP Diastolic 72 mmHg Respiratory Rate 16 /min BMI (Body Mass Index) 28.6 kg/m2 06/08/2011 Height 68 inches 5'8" Weight 200.00 lb Heart Rate 75 /min BP Systolic 132 mmHg BP Diastolic 66 mmHg BMI (Body Mass Index) 30.4 kg/m2 03/20/2011 Height 68 inches 5'8" Weight 199.00 lb Heart Rate 73 /min BP Systolic 180 mmHg BP Diastolic 90 mmHg BP Systolic Sitting 180 mmHg BP Diastolic Sitting 90 mmHg BP Systolic Standing 160 mmHg BP Diastolic Standing 80 mmHg Respiratory Rate 16 /min BMI (Body Mass Index) 30.3 kg/m2 Results Test Date Test Result H/L Range Note Urinalysis Profile 01/30/2017 Urine Color Yellow 1 Urine Appearance Clear 1 Urine Specific [place] 1.019 1.010-1.030 1 Urine pH 5.0 5-9 [...] A Positive 1 Antibody Screen NEGATIVE 1 Urine Culture And 01/30/2017 Urine Culture SEE RESULT BELOW 1, 4 Sensitivities Type And Screen 03/21/2009 Patient Blood Type A POSITIVE 5 Antibody Screen NEGATIVE 5 Specimen Discard Date 04/04/2009 5, 6 Basic Metabolic Panel 03/21/2009 Sodium 138 mmol/L 135-145 5 Potassium 4.5 mmol/L 3.5-5.0 5 Chloride 108 mmol/L 101-111 5 Co2 (Carbon Dioxide) 27.0 mmol/L 22-32 5 Anion Gap 3.0 mmol/L 2-11 5, 7 Glucose 100 mg/dL 70-100 5, 8 BUN 9 mg/dL 6-24 5 Creatinine 0.90 mg/dL 0.50-1.40 5 One Over Creatinine 1.10 5 BUN/Creatinine Ratio 10.0 8-20 5 Calcium 9.2 mg/dL 8.1-9.9 5, 9 eGFR Non- 90.0 > 60 5 eGFR 108.9 > 60 5, 10 Laboratory test finding 03/21/2009 PTT (Aptt) 36.9 25.15-38.53 5, 11 Protime 03/21/2009 Inr 0.93 Low 0.97-1.03 5, 12 Protime 11.0 SEC Low 11.5-12.2 5, 13 CBC With Electronic Diff 03/21/2009 White Blood Count 8.1 CUMM 4.8-10.8 5 Red Cell Count 5.14 CUMM 4.6-6.2 5 Hemoglobin 16.1 g/dL 14.0-18.0 5 Hematocrit 48 % 42-52 5 Mean Corpuscular Volume 94 um3 80-94 5 Mean Corpuscular Hemoglob 31 pg 27-31 5 Mean Corpuscular HGB Cone 34 g/dL 32-36 5 Redcell Distribution WDTH 13 % 10.5-15 5 Platelet Count 213 CUMM 150-450 5 Mean Platelet Volume 8.8 um3 7.4-10.4 5 Gran % 60.0 % 38-83 5 Lymph % 30.8 % 25-47 5 Mononuclear % 7.0 % 1-9 5 Eosinophil % 1.8 % 0-6 5 Basophil % 0.4 % 0-2 5 Abs Lymphs 2.5 1.0-4.8 5 Abs Mononuclear 0.6 0-0.8 5 Absolute Neutrophil Count 4.9 1.5-7.7 5 Abs Eosinophils 0.1 0-0.6 5 Abs Basophils 0 0-0.2 5 1 02/12 2 Because ethnic data is [...] [address]: Amber Britton MD Acct: [id number] Unit: [id number] AGE: 71 Location: [facility] Re01/30/17 SEX: M Status: REG REF SPEC: [id number] FENG: 01/30/17-[address] [facility] [address]: Amber Britton MD REQ: [id number] RECD: 01/30/17963 STATUS: COMP [facility] DR: Carlos Valente MD _ SOURCE: URINE SPDESC: ORDERED: Urine Culture COMMENTS: DEMETRIA 02/12 QUERIES: Urine Source: Clean Catch Procedure Result Reported Site Urine Culture Final 01/31/17- 1352 ML No Growth (<1,000 CFU/mL) * ML - MAIN LAB ([facility]) . END OF REPORT * ML=Testing performed at Main Lab DEPARTMENT OF PATHOLOGY, [address] [place] [address] Taran Castle M.D. Director [facility] # [id number] 5 AA 03/22/09 6 PREADMISSION TESTING SAMPLES FOR BLOOD BANK WILL BE HELD FOR 14 DAYS FROM THE DATE OF COLLECTION *IF* THE FOLLOWING CRITERIA ARE MET: 1) THE PATIENT HAS *NOT* BEEN IN THE LAST 3 MONTHS. 2) THE PATIENT HAS *NOT* BEEN TRANSFUSED IN THE LAST 3 MONTHS. PREADMISSION TESTING SAMPLES WILL *NOT* BE HELD FOR 14 DAYS FROM PATIENTS WHO IN THE LAST 3 MONTHS: 1) HAVE BEEN 2) HAVE BEEN TRANSFUSED THESE PATIENTS *MUST* BE COLLECTED WITHIN 3 DAYS OF THE SURGERY DATE. 7 Anion gap measurement may be of limited value in the presence of any alkalosis, especially in a combined acid base disorder. . 8 Note change in reference range as of 10/23/07. The change was based on recommendations from the [place] [employer]. 9 Please note change in reference range effective 07 . 10 Because ethnic data is not always readily [...] 15-29 5 Kidney failure <15 (or dialysis) 11 PLEASE NOTE NEW REFERENCE RANGE EFFECTIVE 08. 12 Recommended INR for Patients on Oral Anticoagulants Prophylaxis 2.0 - 3.0 Treatment of thrombosis 2.0 - 3.0 Prevention of embolism 2.0 - 3.0 Prevention of embolism from prosthetic heart valves 2.5 - 3.5 13 DIAGNOSIS,TREATMENT,AND THERAPY MUST BE BASED ON THE INR VALUE ALONE. Procedures Date CPT Code Description Status 02/12/2017 88485 TKR Total Knee Replacement Completed 02/12/2017 40897 TKR Total Knee Replacement Completed 02/07/2017 97613 Holter Monitor Review (24 hr)dr david & lucina Completed only 02/06/2017 51245 ECHO Transthorasic Realtime 2D W Doppler & Color Completed Flow Hosp 01/29/2017 80172 EKG Tracing & Interpretation Completed 10/16/2016 48789 EKG Tracing & Interpretation Completed 05/14/2016 45897 FX Distal Finger/Thumb Care Completed 12/16/2015 25562 EKG Tracing & Interpretation Completed 06/08/2015 00759 EKG Tracing & Interpretation Completed 02/01/2015 08546 Inject/Drain Joint/Bursa Major Completed 10/20/2014 66849 Holter Monitor Review (24 hr)dr bustamanteamp; lucina Completed only 10/20/2014 32473 ECG Monitor/Recording W/Visual Superimposition Scanning Completed 10/18/2014 11616 Holter Monitor Review (24 hr)dr bsutamanteamp; lucina Completed only 10/18/2014 25489 ECG Monitor/Recording W/Visual Superimposition Scanning Completed 02/18/2014 65616 EKG Tracing & Interpretation Completed 09/01/2013 12093 Holter Monitor Review (24 hr)dr bustamanteamp; lucina Completed only 10/14/2012 85561 Holter Monitoring 24 HR New Completed 02/27/2012 67327 Holter Monitor Review (24 hr)dr bustamanteamp; lucina Completed only 02/27/2012 15956 EKG Tracing & Interpretation Completed 02/06/2012 30725 Holter Monitoring 24 HR New Completed 06/08/2011 58263 EKG Tracing & Interpretation Completed 03/30/2011 48210 ECHO Transthoracic, Real-Time 2D With Doppler And Color Completed Flow 03/30/2011 53884 Holter Monitoring 24 HR New Completed 03/29/2011 87957 Treadmill Interp/Report Only Completed 03/29/2011 82587 Stress Test Supervsn W/Out I/R Completed 03/20/2011 72526 EKG Tracing & Interpretation Completed 03/22/2009 52081 Edwards/Facet/Foraminotomy;Ea Addl Segment; Cerv, Thora, Or Completed Lumbar 03/22/2009 42609 Edwards/Facet/Foraminotomy;Vertebral Segment; Lumbar Completed Encounters Type Date Location Provider CPT E/M Dx Office Visit 02/12/2017 [facility],daniel Alyssa Wilder, 57267 I73.9 12:25p Hospitalists CLINICAL DOCUMENTATION NURSE I25.10 Z96.652 I10 Office Visit 01/29/2017 3:40p [facility] Rafaeltaybrj Dangelo, 57820 E78.5 M.DCele I73.9 I49.3 I25.10 F17.210 Z01.810 I34.0 I44.0 I10 Office Visit 12/24/2016 2:15p [facility] Amber Britton M.D. 77355 M25.561 Rubio M25.562 M25.461 M25.462 M17.0 Office Visit 10/20/2016 7:00a [facility] Inderjit Mac, 39310 S29.8xxA Of [facility] J94.2 S22.42xA W30.89xA Office Visit 10/16/2016 4:00p [facility] Paula Dangelo, 98661 I73.9 Luli E78.5 I49.3 I25.10 F17.210 Office Visit 08/27/2016 9:15a [facility] Vicente Naik 19992 S62.521D Of Rubio Alcantara MD Office Visit 12/16/2015 9:40a [facility] Paula Goldberg 00120 I73.9 Luli Dangelo E78.5 R94.31 I49.3 I25.10 F17.210 Office Visit 08/22/2015 8:00a [facility] Amber Britton 61449 S61.220D Rubio Rockwell S61.210D Office Visit 08/05/2015 11:00a [facility] Viktoriya Christensen 17123 S61.220D Of Rubio QUINTANA Office Visit 07/25/2015 1:30p [facility] Amber Britton M.D. 35194 S61.220D Of [facility] Z48.02 Office Visit 07/18/2015 1:30p [facility] mAber Britotn M.D. 46342 M79.641 [facility] S61.220A S61.210A Office Visit 06/08/2015 8:30a [facility] MIRANDA Reyes 22813UTN I73.9 E78.5 R94.31 F17.210 I49.3 Office Visit 02/21/2015 1:30p [facility] Amber Britton M.D. 46741 M17.0 [facility] I73.9 M25.562 M25.561 M25.462 M25.461 Office Visit 02/01/2015 3:00p [facility] Jimmy Varner M.D. 81426 M17.0 [facility] I73.9 Office Visit 11/02/2014 11:40a [facility] Qutaybeh S. Maghaydah, 70069 414.01 M.D. 443.9 401.1 Office Visit 02/18/2014 9:00a [facility] MIRANDA Reyes 42196 414.01 427.69 443.9 794.31 401.1 426.11 Office Visit 09/11/2013 3:20p [facility] Qutaybeh S. Maghaydah, 64783 414.01 M.D. 401.1 426.13 Office Visit 10/27/2012 11:00a [facility] Qutaybeh S. Maghaydah, 61702 414.01 M.D. 401.1 272.4 427.69 Office Visit 08/05/2012 4:15p [facility] Qutaybeh S. Maghaydah, 39948 443.9 M.D. 414.01 401.1 272.4 Office Visit 02/27/2012 9:00a [facility] Qutaybeh S. Maghaydah, 27195 443.9 M.D. 414.01 401.1 794.31 426.13 Office Visit 06/08/2011 2:40p [facility] Qutaybeh S. Maghaydah, 30837 443.9 M.D. 414.01 427.69 401.1 305.1 272.4 Office Visit 03/29/2011 11:30a [facility] Paula Dangelo, 28439 443.9 M.D. 305.1 272.4 794.31 Office Visit 03/20/2011 10:00a [facility] Paula Dangelo, 10590 443.9 M.D. 305.1 401.1 272.4 V72.81 Office Visit 01/01/2011 11:00a [facility] Byron Michael, 03642 724.02 Of Vicenta Rockwell Office Visit 12/21/2010 9:00a [facility] Byron Michael, 73748 443.9 Of Vicenta Rockwell Office Visit 02/09/2009 2:00p [facility] Byron Michael, 92054 724.02 Of Vicenta Rockwell Plan of Care Future Appointment(s):04/18/2017 2:30 pm - KANA Dumas at [facility]04/18/2017 2:30 pm - MIRANDA Almazan at [facility]04/18/2017 2:30 pm - Amber Britton M.D. at [facility]05/01/2017 8:45 am - Amber Britton M.D. at [facility]04/05/2017 - Amber Britton M.D.M25.561 Pain in right kneeFollow up:Follow up: 2 weeks after eumrwgkL05.11 Unilateral primary osteoarthritis, right knee
--- OUTSIDE RECORDS SUMMARY | 2017-04-18 08:44 | XMS REPORT ---
:1945 External Reference #:[id number] [facility] Address [address] [address] Phone [phone] Care Team Providers Name Role Phone Carlos Valente MD Primary Care Physician Unavailable Payers Type Date Identification Numbers Payment Provider Subscriber Medicare Primary Effective: Policy Number: Medicare Jus Gerard 2008 [id number] PayID: [id number] [address] [place] [address] [facility] Part B Policy Number: [id number] [facility] Jus Gerard PayID: [id number] [address] [place] [address] Problems Date Description Provider Status Onset: 03/20/2011 [...] First Daughter colitis First Brother due to MS () - age 78 yrs First Brother due to Diabetes () Second Brother Cancer, Prostate First Sister Diabetes, Non Insulin Dependent Social History Type Date Description Comments Marital Status Lives With Spouse 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 [employer] Cigarette Use Heavy tobacco smoker (more than 10 cigarettes/day) ETOH Use Consumes 1 beer per day Recreational Drug Use Denies Drug Use Smoking Patient is a current smoker, 1ppd smokes every day Daily Caffeine Consumes on average 2 cups of regular coffee per day Exercise Type/Frequency Exercises regularly works on the [employer] Allergies, Adverse Reactions, Alerts Date Description Reaction [...] Besylate 000 Tablet By Mouth Once Daily Aspirin Active Tablets DR 325mg take 1 by Unknown 000 mouth once a day for two weeks Cephalexin Hx Capsules 500mg 60caps 1 capsule Z47.1 Amber 017 - by mouth Tobi, every 6 M.D. 018 hours Percocet Hx Tablets 5-325mg 90tabs take 1-2 Amber 017 - tabs by Tobi, mouth M.D. 017 q4-6 hours as needed pain Keflex Hx Capsules 500mg 21caps by mouth S62.521D Vicente aNik 017 - every 8 Maricruz, hours x 7 MD 017 days Cephalexin Hx Capsules 500mg 28caps one Vicente Naik 017 - tablet Maricruz, four MD 017 times a day for 10 days Mavik Hx Tablets 4mg 30tabs one po qd Qutaybeh 012 - S. Maghaydah, 014 M.D. Mavik /0 Hx Tablets 2mg 30tabs 1 po qd Unknown 000 - 012 Allopurinol 00/0 Hx Tablets 300mg 30tabs 1 po qd Unknown 000 - 014 Collagen OTC 00/0 Hx Cream 1 po qd Unknown 000 - 014 Colchicine 0000/0 Hx Tablets 0.6mg 30tabs 1 po bid Unknown 000 - prn 014 Pletal 00/0 Hx Tablets 1 by Unknown 000 - mouth every day 016 Cephalexin 00/0 Hx Capsules 500mg Unknown 000 - 017 Hydrocodone-Ac 00/0 Hx Tablets 5-325mg Unknown etaminophen 000 - 017 Colcrys 00/0 Hx Tablets 0.6mg 1 po bid Unknown 000 - 018 Colchicine /00/0 Hx Unknown 000 - 017 Medications Administered in Office Medication Date Status Form Strength Qnty SIG Indications Ordering Provider Triamcinolone 02/01/ Administered Injection Jimmy (Kenalog) Diamond Varner M.D. Vital Signs Date Vital Result Comment 03/22/2017 Height 67 inches 5'7" Weight 185.00 [...] 1 Urine Appearance Clear 1 Urine Specific [place] 1.019 1.010-1.030 1 Urine pH 5.0 5-9 [...] [address]: Amber Britton MD Acct: [id number] Unit: [id number] AGE: 71 Location: [facility] Re01/30/17 SEX: M Status: REG REF SPEC: [id number] FENG: 01/30/17-14[address] [facility] DR: Amber Britton MD REQ: [id number] RECD: 01/30/17 STATUS: COMP OTHR DR: Carlos Valente MD _ SOURCE: URINE SPDESC: ORDERED: Urine Culture COMMENTS: AA 02/12 QUERIES: Urine Source: Clean Catch Procedure Result Reported Site Urine Culture Final 01/31/17- 1352 ML No Growth (<1,000 CFU/mL) * ML - [facility] . END OF REPORT * ML=Testing performed at Main Lab DEPARTMENT OF PATHOLOGY, [address] [place] [address] Taran Castle M.D. Director [facility] # [id number] 5 03/22/09 6 PREADMISSION TESTING SAMPLES FOR BLOOD [...] change was based on recommendations from the [place] [employer]. 9 Please note change in [...] Procedures Date CPT Code Description Status 02/12/2017 03383 TKR Total Knee Replacement Completed 02/12/2017 11075 TKR Total Knee Replacement Completed 02/07/2017 76020 Holter Monitor Review (24 hr)dr david & lucina Completed only 02/06/2017 85062 ECHO Transthorasic Realtime 2D W Doppler & Color Completed Flow [facility] 01/29/2017 26002 EKG Tracing & Interpretation Completed 10/16/2016 75166 EKG Tracing & Interpretation Completed 05/14/2016 64033 FX Distal Finger/Thumb Care Completed 12/16/2015 20703 EKG Tracing & Interpretation Completed 06/08/2015 24816 EKG Tracing & Interpretation Completed 02/01/2015 79239 Inject/Drain Joint/Bursa Major Completed 10/20/2014 39872 Holter Monitor Review (24 hr)dr bustamanteamp; lucina Completed only 10/20/2014 65950 ECG Monitor/Recording W/Visual Superimposition Scanning Completed 10/18/2014 02503 Holter Monitor Review (24 hr)dr bustamanteamp; lucina Completed only 10/18/2014 59802 ECG Monitor/Recording W/Visual Superimposition Scanning Completed 02/18/2014 36913 EKG Tracing & Interpretation Completed 09/01/2013 20814 Holter Monitor Review (24 hr)dr bustamanteamp; lucina Completed only 10/14/2012 89332 Holter Monitoring 24 HR New Completed 02/27/2012 34377 Holter Monitor Review (24 hr)dr frankie main; lucina Completed only 02/27/2012 52415 EKG Tracing & Interpretation Completed 02/06/2012 75142 Holter Monitoring 24 HR New Completed 06/08/2011 02463 EKG Tracing & Interpretation Completed 03/30/2011 60546 ECHO Transthoracic, Real-Time 2D With Doppler And Color Completed Flow 03/30/2011 31893 Holter Monitoring 24 HR New Completed 03/29/2011 77961 Treadmill Interp/Report Only Completed 03/29/2011 29256 Stress Test Supervsn W/Out I/R Completed 03/20/2011 41670 EKG Tracing & Interpretation Completed 03/22/2009 59265 Edwards/Facet/Foraminotomy;Ea Addl Segment; Cerv, Thora, Or Completed Lumbar 03/22/2009 56065 Edwards/Facet/Foraminotomy;Vertebral Segment; Lumbar Completed Encounters Type Date Location Provider CPT E/M Dx Office Visit 02/12/2017 [facility] Alyssa Wilder, [address]0784 I73.9 12:25p Hospital[facility] [employer] I25.10 Z96.652 I10 Office Visit 01/29/2017 3:40p [facility] Rafaeltaybrj Dangelo, 19890 E78.5 M.DCele I73.9 I49.3 I25.10 F17.210 Z01.810 I34.0 I44.0 I10 Office Visit 12/24/2016 2:15p [facility] Britton M.D. 33987 M25.561 Vesta.Helen M25.562 M25.461 M25.462 M17.0 Office Visit 10/20/2016 7:00a [facility] Inderjit AllyssaCele Mac, 41115 S29.8xxA Of Vicenta AGUILAR J94.2 S22.42xA W30.89xA Office Visit 10/16/2016 4:00p [facility] Rafaeltaybrj S. Loreto, 21293 I73.9 M.DCele E78.5 I49.3 I25.10 F17.210 Office Visit 08/27/2016 9:15a [facility] Vicente Naik 91773 S62.521D Of Rubio Alcantara MD Office Visit 12/16/2015 9:40a [facility] Rafaeltaybrj S. 06575 I73.9 Luli Dangelo E78.5 R94.31 I49.3 I25.10 F17.210 Office Visit 08/22/2015 8:00a [facility] Amber Britton, 95007 S61.220D Rubio Rockwell S61.210D Office Visit 08/05/2015 11:00a [facility] Viktoriya Christensen, 55531 S61.220D Of Rubio [employer] Office Visit 07/25/2015 1:30p [facility] Amber Britton M.D. 31518 S61.220D Of Rubio Z48.02 Office Visit 07/18/2015 1:30p [facility] Amber Britton M.D. 41155 Efrain79.641 [facility] S61.220A S61.210A Office Visit 06/08/2015 8:30a [facility] MIRANDA Reyes 53582CGJ I73.9 E78.5 R94.31 F17.210 I49.3 Office Visit 02/21/2015 1:30p [facility] Britton M.D. 49258 M17.0 [facility] I73.9 M25.562 M25.561 M25.462 M25.461 Office Visit 02/01/2015 3:00p [facility] Jimmy Varner M.D. 29013 M17.0 [facility] I73.9 Office Visit 11/02/2014 11:40a [facility] Qutaybeh S. Maghaydah, 04368 414.01 M.D. 443.9 401.1 Office Visit 02/18/2014 9:00a [facility] MIRANDA Reyes 02490 414.01 427.69 443.9 794.31 401.1 426.11 Office Visit 09/11/2013 3:20p [facility] Qutaybeh S. Maghaydah, 79957 414.01 M.D. 401.1 426.13 Office Visit 10/27/2012 11:00a [facility] Qutaybeh S. Maghaydah, 76023 414.01 M.D. 401.1 272.4 427.69 Office Visit 08/05/2012 4:15p [facility] Qutaybeh S. Maghaydah, 57497 443.9 M.D. 414.01 401.1 272.4 Office Visit 02/27/2012 9:00a [facility] Qutaybeh S. Maghaydah, 53410 443.9 M.D. 414.01 401.1 794.31 426.13 Office Visit 06/08/2011 2:40p [facility] Qutaybeh S. Maghaydah, 80252 443.9 M.D. 414.01 427.69 401.1 305.1 272.4 Office Visit 03/29/2011 11:30a [facility] Qutaybeh S. Maghaydah, 25964 443.9 M.D. 305.1 272.4 794.31 Office Visit 03/20/2011 10:00a [facility] Paula Dangelo, 41810 443.9 M.D. 305.1 401.1 272.4 V72.81 Office Visit 01/01/2011 11:00a [facility] Byron Michael, 87796 724.02 Of Vicenta Rockwell Office Visit 12/21/2010 9:00a [facility] Byron Michael, 40712 443.9 Of Vicenta Rockwell Office Visit 02/09/2009 2:00p [facility] Byron Michael, 48660 724.02 Of Vicenta Rockwell Plan of Care Future Appointment(s):04/18/2017 12:00 pm - Amber Britton M.D. at [facility]05/01/2017 8:45 am - Amber Britton M.D. at [facility]04/05/2017 8:30 am - mAber Britton M.D. at [facility]03/22/2017 - Amber Britton M.D.M25.562 Pain in left kneeFollow up:Follow up:Z47.1 Aftercare following joint replacement dfeenykJ89.652 Presence of left artificial knee joint
[2017-04-18] MEDS ORDERED: Scopolamine 1.5 mg* PATCH ONE ×2 (09:09→10:04)
[2017-04-18] MEDS ORDERED: Buffered Lidocaine 0.9% SYRIN* 5 ML/SYR SYRINGE ONE (09:09)
[2017-04-18] MEDS ORDERED: Famotidine IV* 10 MG/ML 2 ML (20 mg) ONE (09:09)
[2017-04-18] MEDS ORDERED: Dexamethasone IV* 4 MG/ML 1 ML (4 MG) ONE (09:09)
[2017-04-18] MEDS ORDERED: ceFAZolin 2 GM in 100 MLS NS (*) BAG IVPB ONE (09:10)
[2017-04-18] MEDS ORDERED: Midazolam* 1 MG/ML 2 ML VIAL (2 MG) ONE ×3 (10:18→13:33)
[2017-04-18] MEDS ORDERED: Morphine PF AMP (0.5MG/ML)* 5 MG/10 ML AMP ONE (10:18)
[2017-04-18] MEDS ORDERED: fentaNYL* 50 MCG/ML 2 ML VIAL (100 MCG VIAL) ONE (10:18)
[2017-04-18] MEDS ORDERED: Bupivacaine 0.5% SDV PF* 10-30ML VIAL ONE (10:20)
[2017-04-18] MEDS ORDERED: Naloxone* 0.4 MG/ML 1 ML VIAL IV PRN ×2 (10:23→12:24)
[2017-04-18] MEDS ORDERED: Acetaminophen IV 1GM/100ML * 1,000 MG/100 ML VIAL IVPB ONE (10:23)
[2017-04-18] MEDS ORDERED: oxyCODONE TAB* 5 MG TAB PO PRN ×2 (10:23→12:24)
[2017-04-18] MEDS ORDERED: PROCHLORPERAZINE INJ 5 MG/ML 2 ML VIAL IV PRN (10:23)
[2017-04-18] MEDS ORDERED: Nalbuphine* 20 MG/ML 1 ML VIAL IV PRN ×2 (10:23→12:24)
[2017-04-18] MEDS ORDERED: fentaNYL* 50 MCG/ML 2 ML VIAL (100 MCG VIAL) IV PRN (10:23)
[2017-04-18] MEDS ORDERED: Levalbuterol 0.63MG/3ML NEB* UNIT OF USE INH PRN (10:23)
[2017-04-18] MEDS ORDERED: Lidocaine 2% PF * 5 ML VIAL ONE (11:49)
[2017-04-18] MEDS ORDERED: Propofol* 10 MG/ML 20 ML BTL IV PUSH ONE (11:49)
[2017-04-18] MEDS ORDERED: Ondansetron INJ* 2 MG/ML VIAL IV PRN (12:24)
[2017-04-18] MEDS ORDERED: Polyethylene Glycol 3350* 17 GM PACKET PO PRN (12:50)
[2017-04-18] MEDS ORDERED: Magnesium Hydroxide LIQ* 30 ML UDC PO PRN (12:50)
[2017-04-18] MEDS ORDERED: Cyclobenzaprine TAB* 10 MG PO PRN (12:50)
[2017-04-18] MEDS ORDERED: EPHEDrine (Pressors)* 50 MG/ML VIAL ONE (13:21)
[2017-04-18] MEDS ORDERED: Acetaminophen IV 1GM/100ML * 100 ML ONE (15:00)
--- NOTE | 2017-04-18 15:09 | RAD ---
HISTORY: Status post right knee arthroplasty COMPARISONS: December 24, 2016 VIEWS: 2, Frontal and lateral views of the right knee FINDINGS: BONE DENSITY: Normal. BONES: The patient is status post right knee arthroplasty. There is no hardware failure or osteolysis. JOINTS: The patient is status post right knee arthroplasty. ALIGNMENT: There is no dislocation. SOFT TISSUES: There is postsurgical change to the soft tissues. OTHER FINDINGS: None. IMPRESSION: STATUS POST RIGHT KNEE ARTHROPLASTY.
[2017-04-18] MEDS: Acetaminophen TAB* 325 MG PO SCH ×2 (16:12→21:05)
[2017-04-18] MEDS ORDERED: Warfarin TAB(*) 6 MG PO ONE (17:00)
[2017-04-18] MEDS: ceFAZolin 1 GM in Dextrose (*) 1 GM/50 ML BAG IVPB SCH (19:41)
[2017-04-18] MEDS: Magnesium Hydroxide LIQ* 30 ML UDC PO SCH (21:05)
[2017-04-18] MEDS: Docusate CAP* 100 MG PO SCH (21:05)
[2017-04-18] MEDS: BuPROPion XL* 150 MG TAB.XL PO SCH (21:06)
--- NOTE | 2017-04-18 23:52 | CONS ---
[facility] MEDICINE CONSULTATION REPORT: DATE OF ADMISSION: 04/18/17 DATE OF CONSULTATION: 04/18/17 ATTENDING PHYSICIAN: Amber Britton MD CONSULTING PHYSICIAN: Dr. Rickie Drake (dictation provided by Magnolia Dao NP). REASON FOR CONSULTATION: Medical comanagement, the patient admitted for right total knee arthroplasty. HISTORY OF PRESENT ILLNESS: Mr. Pichardo is a 71-year-old male with a past medical history of peripheral vascular disease, coronary artery disease, hypertension, depression, who presented to the hospital today for an elective right total knee arthroplasty. Please see the dictated H and P from MIRANDA Scott for complete details. In brief, the patient has failed conservative management and elected to proceed for surgery today. He was seen preoperatively by Dr. Dangelo, who is his geophysicist. Dr. Dangelo notes that the patient has a history of severe peripheral vascular disease with bypass surgery and stenting in the past. He also has a history of coronary artery disease with cardiac cath in 2012 showing a 100% total occlusion, single vessel, right coronary artery with bridging collaterals and [id number] collaterals for medical treatment. The patient was medically cleared to proceed with surgery today. He was also seen by Dr. Valente preoperatively, who noted that the patient had done well after his left total knee replacement and that he was also medically cleared from primary care perspective to proceed with surgery. PAST MEDICAL HISTORY: 1. Peripheral vascular disease with history of bypass surgery and stenting. 2. History of coronary artery disease with 100% total occlusion; right coronary artery, medical treatment only. 3. Hypertension. 4. Hyperlipidemia. 5. Mobitz I second-degree AV block. 6. History of PVCs. 7. History of left total knee arthroplasty. 8. BPH with outflow obstruction. 9. Lumbar laminectomy. MEDICATIONS: Outpatient are: 1. Tylenol 650 mg p.o. q.4 hours p.r.n. 2. Aspirin 81 mg p.o. q.a.m. 3. Cinnamon bark 500 mg p.o. b.i.d. 4. Glucosamine/chondroitin 1 tab p.o. b.i.d. 5. Magnesium oxide 125 mg p.o. q.a.m. 6. Potassium 50 mg p.o. q.a.m. 7. Amlodipine 5 mg p.o. q.a.m. 8. Bupropion XL 150 mg p.o. b.i.d. ALLERGIES: ALLOPURINOL, ATORVASTATIN, CILOSTAZOL, OXYCODONE. FAMILY HISTORY: Reported history positive for heart disease and diabetes. SOCIAL HISTORY: The patient is , lives with his spouse, who is the healthcare proxy. He is a current smoker, smokes about a pack a day, no interest in quitting. He consumes 1 beer per day. No report of drug use. REVIEW OF SYSTEMS: A 14-point review of systems was completed with Mr. Pichardo and all those not mentioned above were negative. PHYSICAL EXAM: Vital Signs: Temperature 97.3, pulse rate 71, respiratory rate 16, O2 saturation 95% on 2 L nasal cannula, blood pressure 107/55. General: Mr. Pichardo is lying in the bed with his at the bedside. He is in no acute distress. Neuro: He is alert. He is oriented x3. He moves all extremities equally. There is no facial asymmetry or focal weakness. Extraocular movements are intact. Heart: S1, S2. No murmur, rub, or gallop and regular. Lungs: Clear to auscultation bilaterally with no accessory muscle use and good aeration. Abdomen: Soft, nontender with bowel sounds positive x4. Extremities : No cyanosis, no edema. Skin: Intact. DIAGNOSTIC STUDIES/LAB DATA: Preoperatively, the patient had WBC 8.1, hemoglobin 15.2, hematocrit 44, platelet count 225. Sodium 139, potassium 4.0, chloride 105, serum bicarbonate 27, BUN 18, creatinine 0.81, glucose 93. ASSESSMENT: Mr. Pichardo is a 71-year-old male with a past medical history of coronary artery disease, peripheral vascular disease, hypertension, hyperlipidemia, who presented to the hospital today for an elective right total knee arthroplasty. Recommendations are as follows: 1. Postop day #0, status post right total knee arthroplasty: The patient will be continued to be cared for by the orthopedic team. He will have PT and OT. We will monitor H and H closely. He will have pain medication with a bowel regimen. 2. Coronary artery disease. The patient is completely asymptomatic. He continues on his amlodipine only. He is not on any beta-blockers, TREASURE inhibitors and his aspirin is being held for now until approved per Surgery. 3. Peripheral vascular disease. As per CAD above, the patient is asymptomatic. 4. Hypertension. Continue amlodipine. 5. Depression. Continue Wellbutrin. 6. Code status is full code. TIME SPENT: Approximately 60 minutes were spent on admission of this patient, more than half the time spent with the patient at the bedside reviewing the event leading up to this hospitalization, performing the physical examination, and reviewing the plan of care. MAGNOLIA DAO NP [id number]/CPS #: [id number] JARRELL
[2017-04-19] MEDS ORDERED: Ondansetron INJ* 2 MG/ML VIAL IV PRN (04:00)
[2017-04-19] MEDS ORDERED: oxyCODONE/Acetamin 5/325 MG* TAB PO PRN ×2 (04:00)
[2017-04-19] MEDS ORDERED: Morphine INJ* 2 MG/ML 1 ML CARPUJECT IV PRN (04:00)
[2017-04-19] MEDS ORDERED: diPHENhydraMINE IV* 50 MG/ML 1 ml VIAL (BENADRYL) IV PRN (04:00)
[2017-04-19] MEDS: ceFAZolin 1 GM in Dextrose (*) 1 GM/50 ML BAG IVPB SCH ×2 (04:28→12:07)
[2017-04-19] MEDS: Acetaminophen TAB* 325 MG PO SCH (04:28)
[2017-04-19 06:14] LABS: Hematocrit 36 % (42-52); Hemoglobin 12.2 g/dl (14.0-18.0); Mean Platelet Volume 9 um3 (7.4-10.4); Platelet Count 159 10^3/ul (150-450)
[2017-04-19 06:22] LABS: INR 0.98 (0.77-1.02)
[2017-04-19] MEDS: Docusate CAP* 100 MG PO SCH (08:56)
[2017-04-19] MEDS: BuPROPion XL* 150 MG TAB.XL PO SCH (08:56)
[2017-04-19] MEDS: Magnesium Hydroxide LIQ* 30 ML UDC PO SCH (08:56)
[2017-04-19] MEDS ORDERED: amLODIPine TAB* 5 MG PO SCH (09:00)
[2017-04-19] MEDS ORDERED: Vitamin THERAPEUTIC TAB PO SCH (09:00)
[2017-04-19] MEDS ORDERED: Nicotine PATCH 21 MG/24 HR* PATCH TRANSDERM SCH (09:00)
--- NOTE | 2017-04-19 09:02 | PN ---
Subjective Date of Service: 04/19/17 Interval History: Mr. Pichardo states that he is feeling great and is preparing for discharge. Objective Active Medications: Acetaminophen (Tylenol Tab*) 975 mg PO Q8H TERELL Acetaminophen (Tylenol Tab*) 650 mg PO Q4H PRN Amlodipine Besylate (Norvasc Tab*) 5 mg PO QAM TERELL Bupropion HCl (Wellbutrin Xl *) 150 mg PO BID TERELL Cyclobenzaprine HCl (Flexeril Tab*) 10 mg PO TID PRN Diphenhydramine HCl (Benadryl Iv*) 25 mg IV Q6H PRN Docusate Sodium (Colace Cap*) 100 mg PO BID TERELL Enoxaparin Sodium (Lovenox(*)) 30 mg SUBCUT Q24H TERELL Fentanyl Citrate (Fentanyl*) 50 mcg IV Q5M PRN Cefazolin Sodium/Dextrose (Kefzol 1 Gm In Dextrose Duplex (*)) 1 gm in 50 mls @ 200 mls/hr IVPB Q8H TERELL Lactated Ringer's (Lactated Ringers 1000 Ml Bag*) 1,000 mls @ 100 mls/hr IV PER RATE TERELL Lactulose (Lactulose*) 30 ml PO Q6H PRN Magnesium Hydroxide (Milk Of Magnesia Liq*) 30 ml PO BID TERELL Magnesium Hydroxide (Milk Of Magnesia Liq*) 30 ml PO Q6H PRN Morphine Sulfate (Morphine Inj (Syringe)*) 2 mg IV Q2H PRN Multivitamins (Theragran Tab*) 1 tab PO DAILY [facility] Naloxone HCl (Narcan*) 0.08 mg IV Q2M PRN Nicotine (Nicotine Patch 21 Mg/24 Hr*) 1 patch TRANSDERM DAILY [facility] Ondansetron HCl (Zofran Inj*) 4 mg IV Q6H PRN Oxycodone HCl (Roxycodone Tab*) 5 mg PO Q4H PRN Oxycodone HCl (Roxycodone Tab*) 10 mg PO Q4H PRN Oxycodone/Acetaminophen (Percocet 5/325 Tab*) 2 tab PO Q4H PRN Oxycodone/Acetaminophen (Percocet 5/325 Tab*) 1 tab PO Q4H PRN Pharmacy Profile Note (Scopolamine Patch Remove*) 1 note PATCH OFF ONCE ONE Pharmacy Profile Note (Nicotine Patch Removal Note*) 1 note PATCH OFF 2099 TERELL Polyethylene Glycol/Electrolytes (Miralax*) 17 gm PO DAILY PRN Vital Signs: Temp Pulse Resp BP Pulse Ox 97.4 F 72 16 113/52 98 04/19/17 07:33 04/19/17 07:33 04/19/17 08:00 04/19/17 07:33 04/19/17 08:00 Oxygen Devices in Use Now: None Appearance: Male sitting on edge of bed in NAD Eyes: No Scleral Icterus Ears/Nose/Mouth/Throat: Mucous Membranes Moist Neck: Trachea Midline Respiratory: Symmetrical Chest Expansion and Respiratory Effort, Clear to Auscultation Cardiovascular: NL Sounds; No Murmurs; No JVD, No Edema Abdominal: NL Sounds; No Tenderness; No Distention Lymphatic: No Cervical Adenopathy Extremities: No Edema Skin: No Rash or Ulcers Neurological: Alert and Oriented x 3, NL Muscle Strength and Tone Nutrition: Taking PO's Result Diagrams: 04/19/17 06:06 04/19/17 06:06 Assess/Plan/Problems-Billing Assessment: Mr. Pichardo is a 71 yo M with a PMH of CAD, PVD who was admitted on 04/18/17 for a right total knee replacement. - Patient Problems (1) S/P total knee replacement Comment: - Management per ortho. - Pain meds prn with bowel regimen. - PT/OT. (2) Hypertension Comment: - Continue amlodipine. (3) Depression Comment: - Continue wellbutrin. (4) CAD (coronary artery disease) Comment: - Resume aspirin. (5) PVD (peripheral vascular disease) Comment: - Resume aspirin. (6) DVT prophylaxis Comment: - Lovenox with warfarin. (7) Full code status Comment: Status and Disposition: Inpatient. Discharge per ortho.
[2017-04-19] MEDS: Acetaminophen TAB* 325 MG PO PRN ×2 (11:22→15:15)
[2017-04-19] MEDS ORDERED: Enoxaparin(*) 30 MG/0.3 ML SYR SUBCUT SCH (12:00)
[2017-04-19 12:18] VITALS: BP 132/61
[2017-04-19] MEDS ORDERED: oxyCODONE TAB* 5 MG TAB PO PRN (12:24)
--- NOTE | 2017-04-19 12:44 | OP ---
DATE OF OPERATION: 04/18/17 - ROOM #348 DATE OF : 41 ATTENDING SURGEON: Amber Britton MD LOG DATA TECHNICIAN: MIRANDA Scott. Ms. Vega did help throughout the procedure with preparation of the leg, wound retraction, manipulation of the knee, and wound closure. ANESTHESIOLOGIST: Dr. Jones. ANESTHESIA: Spinal. PRE-OP DIAGNOSIS: Severe end-stage degenerative osteoarthritis of the right knee joint. POST-OP DIAGNOSIS: Severe end-stage degenerative osteoarthritis of the right knee joint. OPERATIVE PROCEDURE: Right total knee arthroplasty. COMPLICATIONS: None. ESTIMATED BLOOD LOSS: 400 cc. TOURNIQUET TIME: 10 minutes. SPECIMEN: Bone and cartilage from the right knee joint sent to Pathology. HARDWARE USED: This is [employer] cemented total knee arthroplasty hardware. Two packages of Simplex bone cement were used. For the femur, a size 7 right posterior stabilized femoral component. For the tibia, a size 6 right Nini II tibial base plate. For the insert, a 9-mm posterior stabilized articular insert, size 5/6. For the patella, a 35-mm 3-peg all poly patella. BRIEF HISTORY/INDICATION: Mr. Pichardo is a 71-year-old gentleman with years of increasingly severe right knee pain and stiffness. He elected to undergo a right total knee arthroplasty due to continued pain and decreased quality of life. He failed conservative treatment with antiinflammatories, pain medication , intraarticular injections, and physical therapy. Informed consent was obtained from the patient. He understood the risks of surgery included but were not limited to bleeding, infection, damage to nearby structures, continued pain, need for further surgery, intraoperative fracture, nerve palsy, hardware failure or loosening, knee stiffness, loss of motion, stroke, heart attack, blood clot, and . He wished to proceed. INTRAOPERATIVE FINDINGS: Intraoperatively, the patient was noted to have severe flexion contracture of 20 degrees preoperatively with flexion only to 90 degrees. Postoperatively, he had full extension to 125 degrees of flexion. Intra -operatively, he was noted to have extensive osteophyte formation. A large loose body in the suprapatellar pouch. A likely non-ossified ossicle lateral to the patella, which was removed. A large amount of posterior osteophytes and medial tibial plateau osteophytes. DESCRIPTION OF PROCEDURE: Mr. Pichardo was identified in the preanesthesia unit. His right lower extremity was marked as the correct operative site. Informed consent was signed and placed in the chart. The patient was taken to the operating room and placed under spinal anesthesia. A Narvaez catheter was placed. Tourniquet was placed on the right thigh. Per the patient's vascular surgeon, we would not use the tourniquet except for cementing of the total knee. Right lower extremity was prepped and draped in the usual sterile fashion. Preop time-out was made to correctly identify the patient, side, and site. Appropriate perioperative antibiotics were given within 1 hour of incision. A midline incision was made with a 10-blade and carried sharply down to the extensor mechanism. A new 10-blade was used to make a standard medial parapatellar arthrotomy. Patella was everted. Curette and rongeur were used to excise the lateral ossicle next to the patella. Next, electrocautery was used to subperiosteally elevate the soft tissue off the superomedial tibia and a large amount of medial tibial osteophyte was removed with a rongeur. The knee was flexed up. Large loose body in the suprapatellar pouch was removed, which was at least 1.5 cm in diameter. Anterior horn of the lateral meniscus and ACL were sharply released. A drill was used to enter the distal femur. Intramedullary distal femoral cutting guide was pinned on the distal femur. Oscillating saw was used to make the distal femoral cut. An additional 2 mm were taken distally due to the significant flexion contracture preoperatively. External rotation guide was pinned on the distal femur. The distal femur was sized to a size 7. Size 7 multi-cutting jig was pinned on the distal femur. Oscillating saw was used to make the appropriate 4 chamfer cuts. The PCL was completely released. The tibia was subluxed anteriorly. Extramedullary tibial cutting guide was pinned on the proximal tibia. Oscillating saw was used to make the proximal tibial cut perpendicular to the mechanical axis of the tibia. The bone was carefully removed. A large amount of osteophyte posteriorly was removed. The knee was brought out into full extension. A spacer block had good fit. Medial and lateral ligaments were well balanced. Flexion and extension gaps were well balanced. The knee was flexed up. Lamina training executive was placed both medially and laterally. Any remaining meniscus was carefully removed using electrocautery. A curved osteotome was used to remove a remarkable amount of osteophyte along the posterior femoral condyle. Tibial tray and drop marija were placed to once again confirm satisfactory tibial cut. This was confirmed. A trial right size 7 femoral component was impacted on to the distal femur and had good fit. The box for the posterior stabilized implant was prepared using a reamer and box cut osteotome. Size 6 tibial tray trial with a 9- mm insert trial was placed and the knee was taken through range of motion. The knee had full extension to 125 degrees of flexion with satisfactory patellofemoral tracking. The patella was everted. 9-mm of patellar bone and cartilage was removed using an oscillating saw. Patella was sized to a size 35. The 3-peg holes were drilled through the size 35 guide. 35 trial patella was placed and the knee was taken through range of motion. There was satisfactory patellofemoral tracking. All trials were carefully removed. The tibia was subluxed anteriorly and sized to a size 6. Proximal tibia was prepared using a size 6 keel punch. All bony cut surfaces were copiously irrigated with sterile saline and dried. Final implants were cemented into place starting with the tibia, followed by the femur and last the patella. A 9-mm insert trial was placed and the knee was brought out into full extension. The tourniquet had been inflated only for cementing. Total tourniquet time was 10 minutes. Tourniquet was deflated. Electrocautery was used to obtain meticulous hemostasis. The knee was copiously irrigated with sterile saline. Once the cement was fully cured, the insert trial was removed. Any excess cement was removed from around the capsule and hardware. Final insert chosen was a 9-mm posterior stabilized articular insert, size 5/6. This was locked into position on the tibial tray. Stability of the insert was checked and rechecked and noted to be stable. The knee was copiously irrigated with sterile saline. The extensor mechanism was closed over a medium Hemovac drain using interrupted #1 Vicryls. The rest of the incision was closed in layered fashion using 0 and 2-0 Vicryls. Skin was closed using running 3-0 nylon suture. Sterile Xeroform, 4x4s, and Webril were used to cover the incision. Carl wrap and cold pack were placed over this. The patient's anesthesia was reversed without difficulty. He was taken to the PACU in stable condition. Intended weightbearing will be weightbearing as tolerated. Intended DVT prophylaxis will be Lovenox while in the hospital and at home on aspirin. Of special note, preoperative and postoperative distal pulses were 2+, palpable DP pulses noted by me. [id number]/[facility] #: [id number] [facility]ANES[facility]avanan
[2017-04-19] MEDS ORDERED: Nicotine Patch Removal NOTE PATCH OFF SCH (21:00)
[2017-04-20] MEDS ORDERED: Aspirin Low Dose CHEW TAB* 81 MG PO SCH (09:00)
[2017-04-21] MEDS ORDERED: Scopolamine PATCH Remove* 1 NOTE MISC PATCH OFF ONE (06:00)
--- NOTE | 2017-04-22 14:31 | DS ---
DISCHARGE SUMMARY: DATE OF ADMISSION: 04/18/17 DATE OF DISCHARGE: 04/19/17 ATTENDING SURGEON: Dr. Britton * (DICTATED BY MIRANDA OROPEZA) CHIEF COMPLAINT: 1. Right knee osteoarthritis. 2. Hypertension. 3. Depression. 4. Coronary artery disease. 5. Peripheral vascular disease. DISCHARGE DIAGNOSES: 1. Status post right total knee arthroplasty. 2. Hypertension. 3. Depression. 4. Coronary artery disease. 5. Peripheral vascular disease. PROCEDURE: Right total knee arthroplasty. CONSULTATIONS: Physical Therapy, Occupational Therapy, and Medicine. BRIEF HISTORY: Mr. Pichardo is a 71-year-old gentleman with severe end-stage osteoarthritis of his right knee. He failed conservative management and elected to proceed with a right total knee arthroplasty on 04/18/[address] Britton. HOSPITAL COURSE: Mr. Pichardo was admitted to [facility] on 04/18/17 where he underwent a right total knee arthroplasty. Postoperatively, he recovered on the short stay surgical floor. On postop day 1, his Narvaez catheter was removed and he was able to urinate on his own. His drain was also removed from his knee at that time. He was advanced to regular diet with no difficulty and his pain controlled with p.o. Percocet. He was restarted on his home medications. His labs and vital signs remained stable. He was able to weight bear as tolerated on his left lower extremity, advanced appropriately with physical therapy and occupational therapy and his DVT prophylaxis was managed with Lovenox and Coumadin until he reach therapeutic INR. On postop day #1, he was orthopedically and medically stable for discharge home with services. PHYSICAL EXAMINATION: General: The patient is well nourished, well developed, in no acute distress. He is alert and oriented x3. Vital signs on day of discharge: Temperature was 97.9, pulse rate was 72, respiration rate 16, oxygen saturation 96%, blood pressure 132/61. Examination of his right lower extremity demonstrates a surgical incision on the anterior aspect of his right knee. Incision was noted to be benign without erythema, drainage or physical or clinical signs of infection. Dry sterile dressing was applied. He has active ankle dorsi and plantar flexion. His DP pulses as well as PT pulses were palpable using ultrasound. Sensation was intact to light touch distally. LABORATORY DATA: On date of discharge, hemoglobin 12.2, hematocrit 36. DISCHARGE MEDICATIONS: 1. Percocet 5/325 mg 1 to 2 tablets every 4 to 6 hours as needed for pain. 2. Zofran 8 mg ODT tablet every 8 hours as needed for nausea. 3. Glucosamine chondroitin 1 tablet twice daily. 4. Magnesium oxide 125 mg every day. 5. Amlodipine 5 mg daily. 6. Aspirin 81 mg daily. 7. Cinnamon bark 500 mg twice daily. CONDITION ON DISCHARGE: Stable. DISCHARGE INSTRUCTIONS: Mr. Pichardo is a 71-year-old gentleman postop day #1, status post right total knee arthroplasty which was uncomplicated. He is orthopedically and medically stable for discharge home without services. His lab and vital signs are stable. He will restart his home medications. He will take 2 regular aspirin 325 mg daily for DVT prophylaxis. He will remain weightbearing as tolerated on the left lower extremity. He will go to outpatient physical therapy twice a week and he will take Percocet for pain control. He will take Colace up to 3 times a day for constipation. He will follow up with Dr. Britton in 10 to 14 days for incision check and suture removal. He was instructed to go immediately to the ER if he should develop chest pain or shortness of breath. He will call our office if he develop fever , increasing pain or increasing redness around the incision site. MIRANDA OROPEZA [id number]/[facility] #: [id number] MTDD
== END 2017-04-19 15:45 | disposition home or self-care (01) | DRG 470 ==
LOC: AA 08:36 → SSU 15:53
PROVIDERS: ADMIT Orthopaedic Surgery Adult Reconstructive Orthopaedic Surgery; ATTEND Orthopaedic Surgery Adult Reconstructive Orthopaedic Surgery
PROC: 0SRC0J9 Replacement of Right Knee Joint with Synthetic Substitute, Cemented, Open Approach (ICD-10-PCS; principal; 2017-04-18 11:30)
DX: M17.11 Unilateral primary osteoarthritis, right knee (principal); N13.8 Other obstructive and reflux uropathy; N40.1 Benign prostatic hyperplasia with lower urinary tract symptoms; F32.9 Major depressive disorder, single episode, unspecified; I73.9 Peripheral vascular disease, unspecified; I25.10 Atherosclerotic heart disease of native coronary artery without angina pectoris; F17.210 Nicotine dependence, cigarettes, uncomplicated; I10 Essential (primary) hypertension; M24.561 Contracture, right knee; M25.761 Osteophyte, right knee; E78.5 Hyperlipidemia, unspecified; Z96.652 Presence of left artificial knee joint; Z98.49 Cataract extraction status, unspecified eye; Z72.89 Other problems related to lifestyle; Z95.820 Peripheral vascular angioplasty status with implants and grafts; Z88.6 Allergy status to analgesic agent; Z88.8 Allergy status to other drugs, medicaments and biological substances; Z82.49 Family history of ischemic heart disease and other diseases of the circulatory system; Z83.3 Family history of diabetes mellitus; Z88.5 Allergy status to narcotic agent
CPT/HCPCS: 36415; 80048; 85014; 85018; 85049; 85610; 88305; 88311; A9270-GY; J0690; J1100; J1200; J1650; J2250; J2704; J3010